=== PATIENT | male | born 1940 | race Caucasian/White ===

== ENCOUNTER 2018-06-24 23:35 | Inpatient (IN) | payer MEDICARE, OTHER ==
[2018-06-25 00:23] LABS: Troponin I 0.291 ng/mL (< 0.028)
[2018-06-25] MEDS ORDERED: Enoxaparin Sodium 80 MG/0.8 ML SYRINGE ONE (01:02)
[2018-06-25] MEDS ORDERED: Ondansetron ODT 4 MG TAB PO PRN (01:20)
[2018-06-25] MEDS ORDERED: Ondansetron PF 4 MG/2 ML Vial IVP PRN (01:20)
[2018-06-25 03:03] LABS: #Basophils 0.1 thou/uL (0.0-0.2); #Eosinphils 0.4 thou/uL (0.0-0.7); #Lymphocytes 2.5 thou/uL (1.20-3.40); #Monocytes 0.7 thou/uL (0.11-0.59); #Neutrophils 4.5 thou/uL (1.40-6.50); %Basophils 0.8 % (0.0-1.0); %Eosinophils 4.9 % (0.0-10.0); %Lymphocytes 30.3 % (21.0-51.0); %Monocytes 8.8 % (0.0-10.0); %Neutrophils 55.1 % (42.0-75.0); Hemoglobin 14.7 g/dL (14.0-18.0); Mean Corpuscular HGB CONC 32.6 g/dL (32.0-36.0); Mean Corpuscular Hemoglobin 31.1 pg (27.0-31.0); Mean Corpuscular Volume 95.3 fL (78.0-98.0); Mean Platelet Volume 6.4 fL (7.4-10.4); Platelet Count 226 thou/uL (130-400); RBC Distribution Width 11.5 % (11.5-14.5); Red Blood Cell (RBC) Count 4.73 mill/uL (4.70-6.10); White Blood Cell (WBC) Count 8.2 thou/uL (4.8-10.8)
[2018-06-25 03:27] LABS: Anion Gap 12 mmol/L (10-20); BUN (Urea Nitrogen) 11 mg/dL (8.4-25.7); Calc. Creatinine Clearance 0 mL/min (70-130); Calcium 9.6 mg/dL (7.8-10.44); Carbon Dioxide 27 mmol/L (23-31); Chloride 106 mmol/L (98-107); Estimated GFR-MDRD 89; Glucose 104 mg/dL (83-110); Sodium 141 mmol/L (136-145)
[2018-06-25 03:33] LABS: Troponin I 0.326 ng/mL (< 0.028)
[2018-06-25 06:42] LABS: Troponin I 0.336 ng/mL (< 0.028)
--- NOTE | 2018-06-25 06:42 | HP ---
PRIMARY CARE DOCTOR: TIME OF EVALUATION: 01:00 a.m. CHIEF COMPLAINT: Chest pain. HISTORY OF PRESENT ILLNESS: This is a 78-year-old male patient with past medical history of hypertension, long-term smoker, came to the hospital after having chest pain, has been on and off for the past week. No clear triggers. No alleviating factors, although the patient reported it is worsened with exertion. The pain radiates to the left arm, symptoms are moderate, associated with shortness of breath. REVIEW OF SYSTEMS: CONSTITUTIONAL: No fever, chills, or generalized weakness. RESPIRATORY: The patient has occasional cough. No sputum production. He reported some shortness of breath. CARDIOVASCULAR: The patient has chest pain as described in HPI. No palpitation. GASTROINTESTINAL: No nausea, vomiting, diarrhea, or abdominal pain. DIRECTOR MEDICAL SCIENCE: No dizziness, headache, or feeling lightheaded. GENITOURINARY: No burning on urination. EXTREMITIES: No leg swelling. All other systems were reviewed and negative except for the findings mentioned above. PAST MEDICAL HISTORY: As mentioned in the HPI. PAST SURGICAL HISTORY: 1. Colon resection. 2. Repair of bowel obstruction with scar tissue. 3. Removal of the blockage in right leg. 4. Surgical history of appendectomy. PSYCH HISTORY: Includes anxiety and depression. FAMILY HISTORY: Reviewed and non contributory to current presentation. SOCIAL HISTORY: The patient drinks socially rarely. The patient denies drug use. He smokes half a pack per day of cigarettes. KNOWN ALLERGIES: To . REPORTED MEDICATIONS: 1. Clonazepam. 2. Propanol. 3. Irbesartan. 4. Combivent. 5. Melatonin. PHYSICAL EXAMINATION: VITAL SIGNS: On presentation, blood pressure 168/93 with heart rate 67, respiratory rate was 20, temperature 98, and pain was 0/10. GENERAL APPEARANCE: The patient is alert, oriented, not in acute distress. HEENT: Eyes, normal conjunctiva. Moist oral mucosa. Anicteric. No JVD. RESPIRATORY: Bilateral air entry. No rales or wheezes. Symmetric expansion. CARDIOVASCULAR: Normal rate and regular rhythm. No murmurs. No gallop. No edema. ABDOMEN: Soft. Normal bowel sounds. MUSCULOSKELETAL: Baseline range of motion and strength. No tenderness. SKIN: Warm and intact. No pallor. No rash. No redness. Peripheral pulses are present. Capillary refill seems to be intact. NEURO: No evidence of any new focal weakness. Baseline speech. Cranial nerve seems to be intact. PSYCH: The patient has good mood. No anxiety. Optimal judgment. DIAGNOSTIC STUDIES: EKG was reviewed. The patient had normal sinus rhythm with a rate of 65, NV 180, QRS 80, and QT corrected 430. I was unable to find a chest x-ray in this patient. We have ordered a chest x-ray. LABORATORY DATA: Labs were reviewed. The patient has a white count 9.2, hemoglobin 14.7, MCV 95, and platelet count 236. Chemistry; sodium 141, potassium 4.0, chloride 106, carbon dioxide 27, anion gap 12, BUN 11, creatinine 0.8, GFR 89, glucose 104, and calcium 9.6. Troponin 0.291, second one is 0.326. ASSESSMENT AND PLAN: The patient has been placed in the hospital for the following medical problems: 1. Non-ST Segment Elevation Myocardial Infarction. The patient has elevated troponin. The patient has been started on Lovenox, irbesartan, propranolol, that was the medication the patient was taken at home. We will start him on atorvastatin and aspirin. Consult cardiology. Most likely patient will go for cardiac cath. Follow recommendations. 2. Uncontrolled hypertension. The patient on presentation, the patient presented with systolic blood pressure of 168 with diastolic 93, the patient was hypertensive, we have reconciled home medications, we will adjust treatment as needed as blood pressures has been in better range. 3. Deep venous thrombosis prophylaxis. 4. Risk assessment, the patient has a high risk of complication due to Non-ST Segment Elevation Myocardial Infarction. Job ID: [id number] [facility]
--- NOTE | 2018-06-25 07:58 | RAD ---
PORTABLE AP CHEST XRAY: DATE: 06/25/2018. HISTORY: Chest pain. COMPARISON: Study obtained from [facility] on 06/24/2018. FINDINGS: The cardiac silhouette and pulmonary vasculature are within normal limits. The lungs remain clear. There has been no interval change from the prior exam. IMPRESSION: No acute cardiopulmonary process. POS: [facility]
[2018-06-25] MEDS ORDERED: Enoxaparin Sodium 40 MG/0.4 ML SYRINGE SC SCH (09:00)
[2018-06-25] MEDS ORDERED: Iopamidol 370 76% 100 ML VIAL ONE (10:18)
[2018-06-25] MEDS ORDERED: Fentanyl 100 MCG/2 ML VIAL ONE (12:28)
[2018-06-25] MEDS ORDERED: Midazolam HCl 2 mg/2 ml Vial ONE (12:28)
[2018-06-25] MEDS ORDERED: Sodium Chloride 0.9% 200 ML IV PRN (12:42)
[2018-06-25] MEDS ORDERED: Nitroglycerin 50 MG/250 ML BOT 250 ML ONE (12:42)
[2018-06-25] MEDS ORDERED: Nitroglycerin 0.4 MG TAB (25 Tab Bottle) SL PRN (12:42)
[2018-06-25] MEDS ORDERED: Sodium Chloride 0.9% 1,000 ML IV SCH (12:45)
[2018-06-25] MEDS ORDERED: Nitroglycerin 50 MG/250 ML BOT 250 ML IVPB SCH (12:45)
--- NOTE | 2018-06-25 12:55 | CON ---
DATE OF CONSULTATION: REASON FOR CONSULTATION: Chest pain and non ST-segment elevation. HISTORY: Mr. Cheng is a very pleasant 78-year-old gentleman, whom I have seen and evaluated in the past. He was previously seen for PVD. 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 This was 4 years ago. He recently presented with chest pain. He has had 4 total episodes lasting no more than 15 minutes. They all occurred at rest. He presented to the emergency room, where his troponin was mildly elevated at 0.2. He is currently pain free. PAST MEDICAL HISTORY: Tobacco use, hypertension, colon resection, and appendectomy. SOCIAL HISTORY: As above including rare alcohol use. HOME MEDICATIONS: Include: 1. Propanol. 2. Irbesartan. 3. Combivent. 4. Melatonin. 5. Clonazepam. REVIEW OF SYSTEMS: A 10-point review of systems is reviewed and as above, otherwise negative. PHYSICAL EXAMINATION: GENERAL: Patient is a pleasant 78-year-old who is in no acute distress. The patient appears their stated age. VITAL SIGNS: Blood pressure 120/70, pulse 80, respiration 20. NEUROLOGIC: The patient is alert and oriented x3 with no focal neurologic deficits. HEENT: Sclerae without icterus. Mouth has moist mucous membranes with normal pallor. NECK: No JVD. Carotid upstroke brisk. No bruits bilaterally. LUNGS: Clear to auscultation with unlabored respirations. BACK: No scoliosis or kyphosis. CARDIAC: Regular rate and rhythm with normal S1 and S2. No S3 or S4 noted. No significant rubs, murmurs, thrills, or gallops noted throughout the precordium. PMI is not displaced. There is no parasternal heave. ABDOMEN: Soft, nontender, nondistended. No peritoneal signs present. No hepatosplenomegaly. No abnormal striae. EXTREMITIES: 2+ femoral and 2+ dorsalis pedis pulses. No cyanosis, clubbing, or edema. SKIN: No gross abnormalities. PERTINENT LABORATORY DATA: Hemoglobin 14.7, peak troponin 0.036, creatinine 0.83, hemoglobin 14.7. EKG normal sinus rhythm with nonspecific ST-T wave changes. IMPRESSION: 1. Non-Q-wave myocardial infarction. 2. Tobacco abuse. 3. Peripheral vascular disease. RECOMMENDATIONS: Mr. Cheng symptoms certainly suggest angina. I would recommend coronary angiography plus PCI given the above. He is high risk for underlying coronary artery disease. I discussed procedure in full detail with Mr. Cheng. The risks of the procedure were also discussed. The risks of the procedure include but are not limited to the following: , stroke, [place], need for emergency surgery, loss of limb, bleeding, and infection, as well as a reaction to the dye causing kidney failure and needing long-term dialysis. I also discussed the risks of PCI to include all of the above including coronary dissection and perforation in addition to acute stent thrombosis and restenosis. All questions about the procedure were answered. Given the above, the patient agreed to proceed with coronary angiography and possible PCI. All questions were answered. I also discussed drug-coated and [id number] stent placement. There were no contraindications to proceed if needed. Further recommendations pending the above. Job ID: [id number]
[2018-06-25 14:36] LABS: Hemoglobin 14.6 g/dL (14.0-18.0); Platelet Count 223 thou/uL (130-400)
[2018-06-25 14:43] LABS: PTT 29.8 SEC (22.9-36.1); Prothrombin Time 13.6 SEC (12.0-14.7)
[2018-06-25] MEDS: Aspirin 325 mg Enteric Coated Tablet PO SCH ×2 (17:03→17:04)
[2018-06-25] MEDS: Propranolol HCl 20 MG TAB PO SCH ×3 (17:40→21:18)
[2018-06-25] MEDS ORDERED: Melatonin 3 MG TAB PO PRN (19:20)
[2018-06-25] MEDS: Atorvastatin Calcium 40 MG TAB PO SCH (21:17)
[2018-06-25] MEDS: clonazePAM 0.5 MG TAB PO PRN (21:23)
[2018-06-25] MEDS: Heparin 10,000 UNITS/ 10 ML VIAL SLOW IVP SCH (22:56)
--- NOTE | 2018-06-25 23:09 | CON ---
DATE OF CONSULTATION: 06/25/2018 REQUESTING PHYSICIAN: Yifan Urias MD PRIMARY CARE PHYSICIAN: Dr. Vimal Welch. CHIEF COMPLAINT: Chest pressure. HISTORY OF PRESENT ILLNESS: This patient is a 78-year-old smoker with peripheral vascular disease and hypertension. For about a year, he has noticed some dyspnea on exertion. He says that he gets short of breath climbing up one flight of stairs. He plays golf using a golf cart and he says that he is typically able to walk from his cart to the ball, make a swing and go back to the cart without getting short of breath. He has not had any other chest symptoms associated with those episodes. He has had something of a cough and he recently had an illness that he assumed to be bronchitis that has since resolved. The last few days, however, he has had episodes of chest pressure and on the night of the , he had one that was bad enough, he decided to go to the emergency room. His first set of enzymes were mildly elevated and over the next 6 hours, they continue to rise a little bit. Cardiac catheterization today shows a right-dominant system with a significant distal left main lesion. PAST MEDICAL HISTORY: Significant for hypertension, peripheral vascular disease having undergone percutaneous right lower extremity revascularization procedure about 4 years ago. He describes about 4 or 5 years ago, undergoing a left-sided colon resection for what proved to be numerous benign polyps that apparently were associated with diarrhea. He has had undergone appendectomy. HOME MEDICATIONS: 1. Propranolol 20 mg p.o. t.i.d. 2. Irbesartan 150 mg a day. 3. Clonazepam 0.5 mg b.i.d. p.r.n. anxiety. 4. Melatonin 1 mg at bedtime. 5. He apparently recently been started on a Combivent inhaler after initially using Symbicort. ALLERGIES: HE REPORTS ALLERGIES TO CODEINE AND BENADRYL, ALTHOUGH IT IS NOT CLEAR WHAT THOSE REACTIONS ARE. CURRENT MEDICATIONS: 1. Inderal 20 mg p.o. t.i.d. 2. Irbesartan 150 mg p.o. q.12 hours. 3. Lipitor 40 mg at bedtime. 4. Adult aspirin a day. 5. P.r.n. clonazepam. 6. IV nitroglycerin. FAMILY HISTORY: Significant for his mother dying in her 40s from cancer, but other maternal relatives living to advanced ages. His maternal grandmother lived over 100. On his father's side, his father and paternal uncles all had heart attacks. SOCIAL HISTORY: He smokes half to one pack of cigarettes a day for about 60 years. He occasionally drinks alcohol. REVIEW OF SYSTEMS: He denies any eye, speech, facial, or extremity symptoms to suggest TIAs. The claudication he had in his right lower extremity has resolved since his percutaneous procedure a few years ago. He has dyspnea on exertion as described above. He has not had any shortness of breath associated with his chest pressure. He has no orthopnea or PND. No pedal edema. He has not had any recent diarrhea. He had weight loss associated with his diarrhea and his bowel resection, but none recently. PHYSICAL EXAMINATION: VITAL SIGNS: His heart rate is 76, blood pressure 163/82. On presentation to the emergency room, his heart rate was 67 and blood pressure 168/93. He is 5 feet 11 inches, weighs 159 pounds. HEENT: He has no xanthelasma. NECK: No JVD. No carotid bruits. CHEST: He has clear, but distant breath sounds. He had decreased force of exhalation when I asked him to blow out hard against my hand. HEART: He has a regular rate and rhythm without obvious murmur or gallop. ABDOMEN: Soft, nontender without masses or bruits. He has well-healed surgical scar in the low vertical midline. He has easily palpable radial and femoral pulses bilaterally. Both femoral pulses are associated with bruits. He has a palpable, but somewhat diminished right dorsalis pedis pulse. I was not able to appreciate the left dorsalis pedis. His left posterior tibial is palpable and not able to appreciate the right posterior tibial. No clubbing, cyanosis, or edema. He does have visible saphenous vein at the ankles, which appears to be of good quality. NEUROLOGIC: Grossly nonfocal. DIAGNOSTIC DATA: His chest x-ray shows prominent vascular markings, relatively small elongated heart and ectatic aorta with diaphragms somewhat suggestive of flattening, all consistent with COPD. LABORATORY DATA: Laboratory exam showed a white count of 8.2, hemoglobin 14.7, hematocrit 45.1, platelets 226,000. Electrolytes were normal. Glucose 89, BUN 11, creatinine 0.83, calcium 9.6. His troponin at night of the was 0.291, at about 3 o'clock on the morning of the 15th was 0.326, and at 6 o'clock was 0.336. His EKG had nonspecific ST changes. His cardiac catheterization shows a right-dominant system with extensive calcifications throughout the right coronary into the origin of the branch vessels, as well as the proximal portions of the left main in the LAD and circumflex systems. He has diffuse luminal irregularity in the right coronary proper, significant lesion at the origin of a modest size posterolateral branch that then becomes tiny, and a high-grade lesion at the origin of reasonably large PDA. He has at least 60% or 70% lesion in his distal left main and multiple views have a hazy appearance suggesting that it is probably tighter than that. His LAD is a small vessel about 1 to 1.5 mm for much of its length and then becomes very tiny distally, not even going out to the apex. There is a relatively high diagonal with significant lesion in it. There is a relatively small ramus type vessel and a high-grade lesion in a bifurcated OM1 that is also relatively small vessel. The circumflex continues on in the groove, but does not have any significant vessels coming out onto the epicardial surface from that. Ventriculography was deferred. Echocardiography is reported as EF of 50% to 60% with findings consistent with diastolic dysfunction with mild mitral regurgitation with normal left atrial size. IMPRESSION AND PLAN: Severe left main disease. There is potential for an incomplete revascularization because of the very small size of the LAD distally and extensive calcification more proximally. However, given the extensive nature of his disease including distal left main disease, even incomplete revascularization probably will give him a much better long-term prognosis than relegating him to medical management and what I would imagine to be very high risk percutaneous revascularization. Job ID: [id number]
[2018-06-26 05:10] LABS: #Basophils 0.1 thou/uL (0.0-0.2); #Eosinphils 0.4 thou/uL (0.0-0.7); #Lymphocytes 2.4 thou/uL (1.20-3.40); #Monocytes 0.6 thou/uL (0.11-0.59); #Neutrophils 3.9 thou/uL (1.40-6.50); %Basophils 1.5 % (0.0-1.0); %Eosinophils 4.9 % (0.0-10.0); %Lymphocytes 32.5 % (21.0-51.0); %Monocytes 8.5 % (0.0-10.0); %Neutrophils 52.6 % (42.0-75.0); Hemoglobin 14.1 g/dL (14.0-18.0); Mean Corpuscular HGB CONC 32.1 g/dL (32.0-36.0); Mean Corpuscular Hemoglobin 30.8 pg (27.0-31.0); Mean Corpuscular Volume 96.1 fL (78.0-98.0); Mean Platelet Volume 6.4 fL (7.4-10.4); Platelet Count 217 thou/uL (130-400); RBC Distribution Width 11.4 % (11.5-14.5); Red Blood Cell (RBC) Count 4.59 mill/uL (4.70-6.10); White Blood Cell (WBC) Count 7.5 thou/uL (4.8-10.8)
[2018-06-26 05:26] LABS: Anion Gap 11 mmol/L (10-20); BUN (Urea Nitrogen) 9 mg/dL (8.4-25.7); Calc. Creatinine Clearance 31 mL/min (70-130); Calcium 9.1 mg/dL (7.8-10.44); Carbon Dioxide 27 mmol/L (23-31); Chloride 106 mmol/L (98-107); Estimated GFR-MDRD Greater than 90; Glucose 89 mg/dL (83-110); Potassium 4.1 mmol/L (3.5-5.1); Sodium 140 mmol/L (136-145)
[2018-06-26] MEDS: Propranolol HCl 20 MG TAB PO SCH ×3 (09:55→21:21)
[2018-06-26] MEDS: Aspirin 325 mg Enteric Coated Tablet PO SCH (09:56)
--- NOTE | 2018-06-26 09:56 | PDOC.CTH ---
Cardiology Progress Note - Subjective Pt. seen and eval. No overnight events. No cardiac complaints this AM. - Objective Vital Signs Temp 06/26/18 04:00 97.7 F 06/26/18 00:00 97.6 F Admit Weight 67 lb 3.2 oz Weight 152 lb 1.903 oz 06/25/18 06/26/18 06/27/18 06:59 06:59 06:59 Intake Total 1540.4 Output Total 1125 Balance 415.4 - Physical Examination General/Neuro: alert & oriented x3 Neck: carotid US brisk, no JVD present Lungs: CTA Heart: RRR Abdomen: NT/ND, soft - Labs Result Diagrams: 06/26/18 04:42 06/26/18 04:42 Troponin/CKMB Troponin I 0.336 ng/mL (< 0.028) H* 06/25/18 05:58 - Assessment/Plan 1. CAD. NSTEMI. Left main stenosis. Plan for CABG on Thursday unless pt. becomes unstable. 2. HTN. stable. 3. Anxiety. pt. calm thus far. Meds reviewed.
[2018-06-26] MEDS: Heparin 10,000 UNITS/ 10 ML VIAL SLOW IVP SCH (11:32)
[2018-06-26] MEDS ORDERED: Communication Order-Pharmacy FS ONE (12:11)
[2018-06-26] MEDS ORDERED: Losartan 25 MG TAB PO SCH (12:15)
[2018-06-26] MEDS: ALPRAZolam 0.25 MG TAB PO PRN (14:57)
[2018-06-26] MEDS: Heparin 25,000 units/D5W 500 ML IVPB SCH (15:24)
--- NOTE | 2018-06-26 18:01 | CON ---
DATE OF CONSULTATION: HISTORY OF PRESENT ILLNESS: Faizan Cheng is a very pleasant gentleman, who has undergone cardiac catheterization. It is felt that he will probably need coronary artery bypass grafting. This is tentatively scheduled for Thursday. He is in the Critical Care Unit for observation until surgery. PAST MEDICAL HISTORY: Remarkable for: 1. Hypertension. 2. Peripheral vascular disease. 3. History of right lower extremity revascularization procedure in the past. 4. History of left hemicolectomy for polyps. 5. History of an appendectomy. 6. History of tobacco use up until this admission. 7. Unstable angina leading up to this admission and his heart catheterization. SOCIAL HISTORY: He is a nondrinker, nondrug user. MEDICATIONS: Prior to admission, he is on propranolol, irbesartan, Combivent, melatonin, clonazepam. His Combivent has just been started. He also had prescription for Dulera that his nurse practitioner I believe had started. REVIEW OF SYSTEMS: Otherwise negative. He denies shortness of breath or chest discomfort at this time. PHYSICAL EXAMINATION: GENERAL: Pleasant gentleman, in no distress. VITAL SIGNS: He is afebrile. Blood pressure 114/72, heart rate is 60, respiratory rate is 18. HEENT: Pupils are equal. Sclerae are anicteric. NECK: Supple. LUNGS: Clear. HEART: Regular rhythm. S1 and S2 are normal. I do not hear murmur. ABDOMEN: Soft and nontender without masses or organomegaly. EXTREMITIES: Without clubbing, cyanosis or edema. LABORATORY DATA: White count 7.5, hemoglobin 14.1, platelets 217. Electrolytes are normal. Creatinine is 0.8. IMPRESSION AND PLAN: 1. Coronary artery disease, tentatively scheduled for coronary artery bypass grafting. 2. History of tobacco. He said 6 months ago, he could easily walk a block if he had to but his knees sometimes limit his ability to walk. He does not ever describe dyspnea at rest. 3. It is unclear whether or not he truly has COPD. I would be happy to follow the other physicians caring for him. Hopefully, he will be able to remain abstinent from tobacco after he gets out of here. 70 minute consult with 50 % of time spent on unit coordinating care Job ID: [id number] [facility]
--- NOTE | 2018-06-26 18:38 | PDOC.PN ---
- Subjective Encounter Start Date: 06/26/18 Encounter Start Time: 15:35 Subjective: No new problem -: Denied chest pain. - Objective Resuscitation Status - Order Detail: 06/25/18 01:20 Resuscitation Status Routine Resuscitation Status: FULL: Full Resuscitation Vital Signs & Weight: Vital Signs (12 hours) Temp Pulse Ox 06/26/18 16:00 97.9 F 06/26/18 12:00 98.0 F 06/26/18 08:00 98 06/26/18 07:00 97.6 F Weight Admit Weight 67 lb 3.2 oz Weight 152 lb 1.903 oz Most Recent Monitor Data Heart Rate from ECG 64 NIBP 124/66 NIBP BP-Mean 85 Respiration from ECG 14 SpO2 98 I&O: 06/25/18 06/26/18 06/27/18 06:59 06:59 06:59 Intake Total 1540.4 1471 Output Total 1125 1025 Balance 415.4 446 Result Diagrams: 06/26/18 04:42 06/26/18 04:42 Phys Exam - Physical Examination HEENT: PERRLA Neck: no JVD, supple, full ROM fair air entry bilaterally. Cardiovascular: RRR, no rub Gastrointestinal: soft, non-tender, no distention, positive bowel sounds Musculoskeletal: no edema Neurological: non-focal, moves all 4 limbs Dx/Plan (1) Non-ST elevation NE (NSTEMI) Code(s): I21.4 - NON-ST ELEVATION (NSTEMI) MYOCARDIAL INFARCTION Status: Acute Comment: S/p cardiac cath. Found to have left main disease. For CABG on thursday. (2) COPD (chronic obstructive pulmonary disease) Status: Acute (3) Tobacco abuse disorder Code(s): Z72.0 - TOBACCO USE Status: Acute (4) PVD (peripheral vascular disease) Code(s): I73.9 - PERIPHERAL VASCULAR DISEASE, UNSPECIFIED Status: Acute - Plan Continue antithrombotic and anti angina medications( heparin and Nitro infu -: Duonebs as needed -: For CABG on thursday. * .
[2018-06-26] MEDS: Atorvastatin Calcium 40 MG TAB PO SCH (21:09)
[2018-06-26] MEDS: Losartan 25 MG TAB PO SCH (21:21)
--- NOTE | 2018-06-27 08:38 | PRG ---
DATE OF SERVICE: 06/27/2018 SUBJECTIVE: The patient is seen and examined at bedside. He is resting comfortably. He does not have much complaints to offer, except for a lack of bowel movement for the last several days. He does not have any chest pain. No shortness of breath. OBJECTIVE: VITAL SIGNS: Blood pressure is 120/74, pulse is 63, respirations are 15, O2 saturation is 97%. HEENT: His head is atraumatic and normocephalic. Eyes are PERRLA. Sclerae are nonicteric. Oral mucosa is moist. NECK: Supple. No lymphadenopathy. Thyroid is not palpable. LUNGS: Clear. HEART: S1, S2 normal. No S3. No S4. No any murmur. ABDOMEN: Soft, nontender, nondistended. Bowel sounds are present. No organomegaly. EXTREMITIES: No clubbing, cyanosis, or edema. He has diminished pulses on both tibialis posterior and dorsalis pedis arteries similar bilaterally. NEUROLOGICAL: He is alert and oriented x4. There is no any motor or sensory deficits. Cranial nerves are intact. LABORATORY DATA: Showed APTT ranging from 63.7 to 99.3. IMPRESSION: 1. Nof-[id number] myocardial infarction, status post cardiac catheterization, apparently it showed left main disease. The patient is scheduled for CABG on Thursday. 2. Questionable chronic obstructive pulmonary disease. 3. Chronic tobacco abuser. 4. Peripheral vascular disease. 5. Constipation. PLAN: We will try to get him up today, let him go to the bathroom. He should be able to move his bowels without any help. If needed, we will use some medications to move his bowels before his surgery. We will continue his heparin drip, and we will continue Cody's p.r.n. Job ID: [id number]
[2018-06-27] MEDS: Aspirin 325 mg Enteric Coated Tablet PO SCH (09:26)
[2018-06-27] MEDS: Propranolol HCl 20 MG TAB PO SCH ×3 (09:26→19:45)
[2018-06-27] MEDS: Losartan 25 MG TAB PO SCH ×2 (09:26→19:44)
[2018-06-27] MEDS: ALPRAZolam 0.25 MG TAB PO PRN ×2 (09:48→19:00)
[2018-06-27 12:59] LABS: Platelet Count 216 thou/uL (130-400)
[2018-06-27] MEDS: Heparin 25,000 units/D5W 500 ML IVPB SCH (15:09)
--- NOTE | 2018-06-27 19:15 | PRG ---
DATE OF SERVICE: 06/27/2018 SUBJECTIVE: Faizan Cheng did well overnight. He has had no chest pain. He denies being short of breath. OBJECTIVE: VITAL SIGNS: He is afebrile. Heart rate in the 50s to 60s, blood pressure 145/84, and respiratory rate 20. LUNGS: Clear. HEART: Regular rhythm. ABDOMEN: Soft. EXTREMITIES: Without edema. LABORATORY DATA: Hemoglobin stable at 15 g. Electrolytes are completely normal yesterday, none were ordered today. IMPRESSION: Coronary artery disease necessitating bypass surgery hopefully tomorrow. I would not anticipate significant pulmonary problems with weaning. Hopefully, he will wean per protocol. I will continue to follow. Job ID: [id number]
[2018-06-27] MEDS: Atorvastatin Calcium 40 MG TAB PO SCH (19:44)
[2018-06-27] MEDS: Docusate 100 MG CAP PO SCH (19:45)
[2018-06-28] MEDS: clonazePAM 0.5 MG TAB PO PRN (00:52)
[2018-06-28] MEDS: Propranolol HCl 20 MG TAB PO SCH (06:01)
[2018-06-28] MEDS ORDERED: Albumin 5% 0 ML ONE (06:37)
[2018-06-28] MEDS ORDERED: Heparin 10,000 UNITS/1 ML VIAL 30,000 UNITS in Sodium Chloride 0.9% 1,000 ML FS SCH (06:45)
[2018-06-28] MEDS ORDERED: Fentanyl 250 MCG/5 ML VIAL ONE (07:24)
[2018-06-28] MEDS ORDERED: Midazolam HCl 5 mg/5 ml Vial ONE (07:24)
[2018-06-28] MEDS ORDERED: Morphine 2 MG/ML SYRINGE SLOW IVP PRN (08:17)
[2018-06-28] MEDS ORDERED: Fentanyl 100 MCG/2 ML VIAL SLOW IVP PRN (08:17)
[2018-06-28] MEDS ORDERED: Potassium Chloride 20 MEQ/100 ML PREMIX BAG IVPB PRN (08:17)
[2018-06-28] MEDS ORDERED: Mag-Al 1200 mg/1200 mg/30 ML UDCUP PO PRN (08:17)
[2018-06-28] MEDS ORDERED: Promethazine HCl 25 MG/ML VIAL IM PRN (08:17)
[2018-06-28] MEDS ORDERED: Acetaminophen 325 MG TAB PO PRN (08:17)
[2018-06-28] MEDS ORDERED: Nitroglycerin 50 MG/250 ML BOT 250 ML IVPB PRN (08:17)
[2018-06-28] MEDS ORDERED: Bisacodyl 5 MG TAB PO PRN (08:17)
[2018-06-28] MEDS ORDERED: Ondansetron PF 4 MG/2 ML Vial IVP PRN (08:17)
[2018-06-28] MEDS ORDERED: Bisacodyl 10 MG SUPP PR PRN (08:17)
[2018-06-28] MEDS ORDERED: Post-Op Insulin Drip Protocol IVPB ONE (08:17)
[2018-06-28] MEDS ORDERED: hydrALAZINE 20 MG/ML VIAL SLOW IVP PRN (08:17)
[2018-06-28] MEDS ORDERED: Hetastarch 6% 500 ML 500 ML IVPB PRN (08:17)
[2018-06-28] MEDS ORDERED: Guaifenesin DM 100-10/5 ML UDCUP PO PRN (08:17)
[2018-06-28] MEDS ORDERED: PHENYLEPHRINE-NS 100 MCG/ML 10 ML SYRINGE ONE ×2 (08:38→15:08)
[2018-06-28] MEDS ORDERED: CEFAZOLIN 1 GM VIAL ONE (08:38)
[2018-06-28] MEDS ORDERED: Insulin Regular 300 UNITS/3 ML VIAL SC PRN (09:34)
[2018-06-28] MEDS ORDERED: HUMULIN R 100 UNITS in Sodium Chloride 0.9% 100 ML IVPB SCH (09:34)
[2018-06-28] MEDS ORDERED: Dextrose 50% Abboject 50 ML SYRINGE SLOW IVP PRN (09:34)
[2018-06-28] MEDS ORDERED: Dextrose 5% in Water 1,000 ML IV PRN (09:34)
[2018-06-28 10:15] LABS: Actual Bicarbonate (HCO3a) 24.8 mEq/L (22-28); Base Excess (BEa) 1.7 mEq/L (-2.0 to +3.0); CO2 Tension 32.8 mmHg (35.0-45.0); Calcium, Ionized 0.92 mmol/L (1.12-1.30); Hemoglobin (Hb) 8.6 g/dL (14.0-18.0); O2 Tension (PaO2) 486.5 mmHg (> 70.0); Potassium - ABG Lab 4.82 mmol/L (3.70-5.30)
[2018-06-28 10:39] LABS: Actual Bicarbonate (HCO3a) 24.7 mEq/L (22-28); CO2 Tension 35.9 mmHg (35.0-45.0); Calcium, Ionized 1.01 mmol/L (1.12-1.30); Carboxyhemoglobin (COHb) 0.7 gm% (0.0-3.0); Hemoglobin (Hb) 9.1 g/dL (14.0-18.0); O2 Tension (PaO2) 472.3 mmHg (> 70.0); Potassium - ABG Lab 4.75 mmol/L (3.70-5.30); pH, Arterial 7.46 (7.35-7.45)
[2018-06-28] MEDS ORDERED: Dexamethasone 4 mg/ml Vial ONE (10:43)
[2018-06-28] MEDS ORDERED: Bupivacaine HCl 0.5%/Epinephrine 1:200,000/PF 30 ml Vial ONE (10:43)
[2018-06-28 11:11] LABS: Actual Bicarbonate (HCO3a) 23.3 mEq/L (22-28); Base Excess (BEa) -1.8 mEq/L (-2.0 to +3.0); CO2 Tension 41.3 mmHg (35.0-45.0); Calcium, Ionized 2.03 mmol/L (1.12-1.30); Carboxyhemoglobin (COHb) 0.5 gm% (0.0-3.0); Hemoglobin (Hb) 10.6 g/dL (14.0-18.0); O2 Tension (PaO2) 488.7 mmHg (> 70.0); Potassium - ABG Lab 5.03 mmol/L (3.70-5.30); pH, Arterial 7.37 (7.35-7.45)
[2018-06-28 12:48] LABS: Actual Bicarbonate (HCO3a) 21.3 mEq/L (22-28); Base Excess (BEa) -4.2 mEq/L (-2.0 to +3.0); CO2 Tension 40.5 mmHg (35.0-45.0); Calcium, Ionized 1.27 mmol/L (1.12-1.30); Carboxyhemoglobin (COHb) 0.7 gm% (0.0-3.0); Hemoglobin (Hb) 12.6 g/dL (14.0-18.0); O2 Tension (PaO2) 268.8 mmHg (> 70.0); Potassium - ABG Lab 4.28 mmol/L (3.70-5.30); pH, Arterial 7.34 (7.35-7.45)
[2018-06-28 12:50] LABS: Puncture Site ART LINE
[2018-06-28 12:51] LABS: ALV-art Gradient 37.075 (0-20)
[2018-06-28 12:58] LABS: #Eosinphils 0.2 thou/uL (0.0-0.7); #Neutrophils 16.4 thou/uL (1.40-6.50); %Basophils 0.2 % (0.0-1.0); %Eosinophils 1.2 % (0.0-10.0); %Lymphocytes 10.2 % (21.0-51.0); %Neutrophils 83.3 % (42.0-75.0); Hemoglobin 12.1 g/dL (14.0-18.0); Mean Corpuscular Hemoglobin 31.9 pg (27.0-31.0); Mean Corpuscular Volume 96.6 fL (78.0-98.0); Mean Platelet Volume 6.5 fL (7.4-10.4); Platelet Count 156 thou/uL (130-400); RBC Distribution Width 11.5 % (11.5-14.5); Red Blood Cell (RBC) Count 3.81 mill/uL (4.70-6.10); White Blood Cell (WBC) Count 19.7 thou/uL (4.8-10.8)
[2018-06-28 13:03] LABS: INR-International Normal Ratio 1.4; PTT 28.1 SEC (22.9-36.1); Prothrombin Time 17.6 SEC (12.0-14.7)
[2018-06-28 13:12] LABS: Anion Gap 13 mmol/L (10-20); BUN (Urea Nitrogen) 11 mg/dL (8.4-25.7); Calc. Creatinine Clearance 74 mL/min (70-130); Carbon Dioxide 20 mmol/L (23-31); Chloride 110 mmol/L (98-107); Estimated GFR-MDRD Greater than 90; Glucose 168 mg/dL (83-110); Potassium 4.3 mmol/L (3.5-5.1); Sodium 139 mmol/L (136-145)
[2018-06-28] MEDS: Norepinephrine 8 MG/0.9% NS 250 ML IVPB PRN (13:39)
[2018-06-28] MEDS: Sodium Chloride 0.9% 1,000 ML IV SCH ×2 (13:40→21:44)
[2018-06-28] MEDS: Docusate 100 MG CAP PO SCH ×2 (13:41→20:03)
[2018-06-28] MEDS: Famotidine/PF 20 mg/2ml Vial SLOW IVP SCH (13:41)
[2018-06-28] MEDS: Aspirin 325 MG TAB PO SCH (13:41)
--- NOTE | 2018-06-28 14:58 | RAD ---
CHEST 1 VIEW: Date: 06/28/18 HISTORY: Post open heart surgery. COMPARISON: Radiograph dated 06/25/18. FINDINGS: Patient intubated with endotracheal tube tip at the level of the clavicles. Lungs are mildly hyperinf lated. Mediastinal drains are present. New multiple midline sternotomy wires. No large pneumothorax. IMPRESSION: Expected postoperative findings. POS: [facility]
[2018-06-28] MEDS ORDERED: Protamine Sulfate 250 MG/25 ML VIAL ONE (15:08)
[2018-06-28] MEDS ORDERED: Heparin 30,000 units/30 ml VIAL ONE (15:08)
[2018-06-28] MEDS ORDERED: Cardioplegic Soln 1,000 ML BAG ONE (15:08)
[2018-06-28] MEDS ORDERED: Sodium Bicarb 50 MEQ/50 ML VIAL ONE (15:08)
[2018-06-28] MEDS ORDERED: Thrombin 5000 UNITS/5 ML VIAL ONE (15:08)
[2018-06-28] MEDS ORDERED: Aminocaproic Acid 5 GM/20 ML VIAL ONE (15:08)
[2018-06-28] MEDS ORDERED: Mannitol 12.5 GM/50 ML ONE (15:08)
[2018-06-28] MEDS ORDERED: Heparin 5,000 UNITS/ML VIAL ONE (15:08)
[2018-06-28] MEDS ORDERED: Nitroglycerin 50 MG/250 ML BOT ONE (15:08)
[2018-06-28] MEDS ORDERED: Lidocaine 2% PF 100 mg/5 ml Syringe ONE (15:08)
[2018-06-28] MEDS ORDERED: Papaverine 60 MG/2 ML VIAL ONE (15:08)
[2018-06-28] MEDS ORDERED: Magnesium 5 GM/10 ML VIAL ONE (15:08)
[2018-06-28] MEDS ORDERED: DOPamine 400 MG/10 ML VIAL ONE (15:08)
[2018-06-28] MEDS ORDERED: Rocuronium Bromide 10 MG/ML (10ML VIAL) ONE (15:08)
[2018-06-28] MEDS ORDERED: Calcium Chloride 1 GM/10 ML Abboject SYRINGE ONE (15:08)
[2018-06-28] MEDS ORDERED: PROPOFOL 200 MG/20 ML VIAL ONE (15:08)
[2018-06-28] MEDS ORDERED: Potassium Chloride 60 MEQ/30 ML VIAL ONE (15:08)
[2018-06-28] MEDS ORDERED: Albumin 25% 25 GM/100 ML BOT ONE (15:08)
[2018-06-28] MEDS ORDERED: Vecuronium 10 MG VIAL ONE (15:08)
[2018-06-28 16:05] LABS: Actual Bicarbonate (HCO3a) 22.6 mEq/L (22-28); Base Excess (BEa) -3.1 mEq/L (-2.0 to +3.0); CO2 Tension 43.3 mmHg (35.0-45.0); Calcium, Ionized 1.19 mmol/L (1.12-1.30); Carboxyhemoglobin (COHb) 0.8 gm% (0.0-3.0); Hemoglobin (Hb) 12.6 g/dL (14.0-18.0); O2 Tension (PaO2) 127.3 mmHg (> 70.0); Potassium - ABG Lab 3.82 mmol/L (3.70-5.30); pH, Arterial 7.34 (7.35-7.45)
[2018-06-28 16:16] LABS: ALV-art Gradient 103.775 (0-20)
[2018-06-28] MEDS: Fentanyl 100 MCG/2 ML VIAL SLOW IVP PRN ×3 (16:21→21:14)
--- NOTE | 2018-06-28 17:27 | PRG ---
DATE OF SERVICE: 06/28/2018 SUBJECTIVE: The patient is intubated, still sedated from surgery. OBJECTIVE: VITAL SIGNS: Pulse 81, BP is 104/65, respirations 17, and O2 saturation 92% on the vent. GENERAL APPEARANCE: The patient was sedated, intubated, in no distress, comfortable. HEART: Regular rate and rhythm without murmurs, gallops, or rubs. LUNGS: Clear to auscultation bilaterally. Good chest wall expansion and air exchange. ABDOMEN: Soft, nontender, and nondistended. Positive bowel sounds. No masses. No organomegaly. EXTREMITIES: Warm and dry. IMPRESSION AND PLAN: 1. Significant coronary artery disease, status post coronary artery bypass graft. The patient will be extubated once he is awake from the anesthesia. Followed by [facility]. 2. Rju-MD-kynkkjf myocardial infarction. 3. History of possible chronic obstructive pulmonary disease, appears to be stable. Looks like, he will be very extubatable. 4. History of tobacco abuse. 5. History of peripheral vascular disease, stable. Job ID: [id number]
--- NOTE | 2018-06-28 17:41 | OP ---
DATE OF PROCEDURE: 06/28/2018 PROCEDURES PERFORMED: Coronary artery bypass grafting x4 with left internal mammary artery to the mid left anterior descending artery and reverse greater saphenous vein graft from the aorta to the distal posterior descending artery, to the diagonal, and to the ramus intermedius. PREOPERATIVE DIAGNOSIS: Left main coronary artery disease. POSTOPERATIVE DIAGNOSIS: Left main coronary artery disease. SYSTEMS SOFTWARE ENGINEER: Thiago. ANESTHESIA: General endotracheal anesthesia. INDICATIONS: The patient is a 78-year-old smoker with about a year's history of dyspnea on exertion, who in the days leading up to presentation, began having chest pressure on a daily basis, typically at rest. He had nonspecific EKG changes and mildly elevated troponin consistent with a [id number] myocardial infarction. Cardiac catheterization demonstrated a high-grade distal left main lesion in a right-dominant system and echocardiography suggested preserved left ventricular function. He is now taken to the operating room for surgical revascularization. FINDINGS: Pump time 95 minutes. Cross-clamp time 49 minutes. GILMA was somewhat small and thin walled, but had excellent flow. The saphenous vein was somewhat small and thin walled. The mid LAD was about a 1.5-mm slightly sclerotic vessel. The diagonal was diffusely diseased in its proximal and mid portions, were grafted distally, it was about 1 to 1.5 mm in fairly good quality. The ramus had extensive disease, and approximately, it was about a 2-mm intramyocardial vessel that was fairly in good quality, was grafted. The posterolateral branches of the circumflex proper were tiny and were not grafted. The posterolateral branches of the right were small and not grafted. The entire right coronary proper and PDA were diffusely diseased with rock hard plaque in the PDA almost all the way out towards the apex. The PDA was grafted where it began to dive deep to the great vein where it was about a 1-mm vessel. The pericardium was closed. DESCRIPTION OF PROCEDURE: After informed consent was obtained, the patient was taken to the operating room, placed in supine position on the operating table. After the induction of general anesthesia, ultrasonographic mapping of the patient's left greater saphenous vein was undertaken, and then, a left subclavian central line was placed under sterile conditions by the Seldinger technique. All 3 ports aspirated and flushed easily. The line was secured, and the patient's torso, groins, and lower extremities were then prepped and draped in sterile fashion. Saphenous vein was exposed just above the left knee and was mobilized endoscopically from the groin to the mid calf. There was some difficulty in completing the harvest distally, and a skin bridge technique was used to complete the mobilization and harvest of the vein. The more proximal incisions were closed in layers of subcutaneous and subcuticular Vicryl. The most distal incision was closed with nylon skin suture. A median sternotomy was performed, and the left internal mammary artery was mobilized as a skeletonized in-situ graft through an extrapleural exposure. The patient was heparinized. The mammary was ligated and divided distally. There was excellent flow through the mammary. Papaverine solution was instilled intraluminally, and the mammary bed inspected for hemostasis. The GILMA retractor was placed with a Haq retractor. The hilar reflections of the left pleura were mobilized. The pericardium was opened and marsupialized. The aorta was palpated and was soft. The double concentric pursestring of 2-0 Ethibond was placed in the ascending aorta just within the pericardial reflection, and a single pursestring was placed in the right atrial appendage. Aortic and venous cannulae were inserted and secured by their pursestrings. The plane between the aorta and the pulmonary artery was developed. Cardiopulmonary bypass was instituted, and the patient was systemically cooled. The heart was examined, and the vessel to be bypassed was identified. A longitudinal slit was made in the pericardium anterior to the left phrenic nerve through which the mammary could be passed. An aortic cross-clamp was applied, and cardioplegia was administered through an aortic root needle. When arrest have been achieved, attention was turned to the PDA, was exposed and opened distally as it was too thoroughly involved with quite hard plaque up to that point. Saphenous vein was anastomosed there end-to-side with running Prolene, and the anastomosis tested by flushing cold cardioplegia down the graft. Attention was then turned to the ramus intermedius, where it first drove intramyocardially into the medial branch of the diagonal distally. Both were grafted in the side in a similar fashion. The LAD was then opened at its mid portion. It was reasonably soft vessel at that point and readily accessible. The mammary was anastomosed there with running 7-0 Prolene. The aortic cross-clamp was replaced with a partial occluding clamp, and aortotomy was made in the ascending aorta with a scalpel and punch, incorporating the root needle site for the most proximal aortotomy. The PDA graft was brought along the right side of the heart and anastomosed to that most proximal aortotomy. The diagonal and ramus grafts were brought along the left side of the heart and anastomosed to the middle and distal aortotomies respectively. All three proximal anastomoses were marked with small hemoclips. Partial occluding clamp was removed, and the vein grafts were de-aired. Bulldogs were removed from them. The anastomoses were inspected for hemostasis. A posterior pericardial drain was brought out through a separate incision and secured with suture. Right atrial and right ventricular temporary epicardial pacing wires were placed. The patient was then from cardiopulmonary bypass with the use of pacing and a dopamine drip. The aortic and venous cannulae were removed, and the pursestring secured. Protamine was administered. When hemostasis was adequate, an anterior mediastinal drain was placed, and the pericardium was easily closed over with running Vicryl. The cut surfaces of the sternum were treated with vancomycin paste and platelet-rich GPS. The sternum was reapproximated with #7 stainless steel wires. The fascia was closed over the wires with running #1 Vicryl after having first irrigated the soft tissues and treated it with platelet-poor GPS. The subcutaneous tissue was reapproximated with running 2-0 Vicryl. The skin was closed with a running 3-0 Vicryl subcuticular suture. The wounds were dressed, and the patient was taken to the intensive care unit in stable condition. Job ID: [id number]
--- NOTE | 2018-06-28 17:53 | PRG ---
DATE OF SERVICE: 06/28/2018 SUBJECTIVE: Mr. Cheng is doing well postoperatively. He underwent successful CABG surgery x4 today. OBJECTIVE: VITAL SIGNS: Blood pressure is 90/70, pulse 70s and sinus. LUNGS: Clear. CARDIAC: Normal S1. Normal S2. ABDOMEN: Soft and nontender. EXTREMITIES: No edema. ASSESSMENT AND PLAN: The patient underwent successful coronary artery bypass grafting. Continue current supportive care. Dr. Urias will return tomorrow. Job ID: [id number] MTDD
[2018-06-28 19:03] LABS: Hemoglobin 11.9 g/dL (14.0-18.0)
[2018-06-28 19:17] LABS: Potassium 4.5 mmol/L (3.5-5.1)
[2018-06-28] MEDS: HYDROmorphone 2 MG TAB PO PRN ×2 (20:05→23:45)
[2018-06-29] MEDS: Sodium Chloride 0.9% 1,000 ML IV SCH ×2 (00:39→11:09)
[2018-06-29 03:25] LABS: #Lymphocytes 1.2 thou/uL (1.20-3.40); #Monocytes 1.9 thou/uL (0.11-0.59); #Neutrophils 15.9 thou/uL (1.40-6.50); %Basophils 0.1 % (0.0-1.0); %Lymphocytes 6.5 % (21.0-51.0); %Monocytes 9.8 % (0.0-10.0); %Neutrophils 83.6 % (42.0-75.0); Hemoglobin 10.9 g/dL (14.0-18.0); Mean Corpuscular HGB CONC 32.6 g/dL (32.0-36.0); Mean Corpuscular Hemoglobin 31.8 pg (27.0-31.0); Mean Corpuscular Volume 97.7 fL (78.0-98.0); Mean Platelet Volume 6.8 fL (7.4-10.4); Platelet Count 151 thou/uL (130-400); RBC Distribution Width 11.5 % (11.5-14.5); Red Blood Cell (RBC) Count 3.43 mill/uL (4.70-6.10)
[2018-06-29 03:44] LABS: Anion Gap 13 mmol/L (10-20); BUN (Urea Nitrogen) 15 mg/dL (8.4-25.7); Calc. Creatinine Clearance 71 mL/min (70-130); Calcium 8.6 mg/dL (7.8-10.44); Carbon Dioxide 21 mmol/L (23-31); Chloride 110 mmol/L (98-107); Estimated GFR-MDRD 89; Glucose 116 mg/dL (83-110); Potassium 4.4 mmol/L (3.5-5.1); Sodium 140 mmol/L (136-145)
[2018-06-29] MEDS: HYDROmorphone 2 MG TAB PO PRN ×3 (04:02→13:07)
[2018-06-29] MEDS: Norepinephrine 8 MG/0.9% NS 250 ML IVPB PRN (06:52)
--- NOTE | 2018-06-29 07:46 | EKG ---
Test Reason : POST CABG Blood Pressure : / mmHG Vent. Rate : 089 BPM Atrial Rate : 089 BPM P-R Int : 160 ms QRS Dur : 074 ms QT Int : 376 ms P-R-T Axes : 077 074 079 degrees QTc Int : 457 ms Normal sinus rhythm Nonspecific ST abnormality Abnormal ECG When compared with ECG of 24-JUN-2018 23:43, (Unconfirmed) Fusion complexes are no longer Present Confirmed by LOBITO ELDRIDGE ([id number]) on 06/29/2018 7:45:58 AM Referred By: AYESHA Confirmed By:LOBITO ELDRIDGE
[2018-06-29] MEDS ORDERED: Ketorolac Tromethamine 15 MG/ML VIAL IVP SCH (08:00)
[2018-06-29] MEDS: Docusate 100 MG CAP PO SCH ×2 (08:09→20:12)
[2018-06-29] MEDS: Aspirin 325 MG TAB PO SCH (08:09)
[2018-06-29] MEDS: Pregabalin 75 MG CAP PO SCH ×2 (08:09→20:12)
[2018-06-29] MEDS: Ketorolac Tromethamine 30 MG/ML VIAL IVP SCH ×3 (08:15→20:11)
--- NOTE | 2018-06-29 08:28 | RAD ---
CHEST ONE VIEW: HISTORY: Dyspnea. Followup. COMPARISON: 06/28/2018 FINDINGS: The cardiac silhouette is magnified by projection. The pulmonary vasculature is at the upper limits of normal. The mediastinum is midline with postoperative changes evident. A left subclavian central venous catheter remains in place. The endotracheal catheter is no longer visible. No evidence of p neumothorax. The lungs remain hyperinflated. IMPRESSION: Interval extubation. Otherwise stable postoperative appearance of the chest. POS: LUDA
[2018-06-29] MEDS: Famotidine/PF 20 mg/2ml Vial SLOW IVP SCH (08:52)
[2018-06-29] MEDS ORDERED: Insulin Glargine 5 UNITS in Pre-Filled Syringe 1 EACH SC SCH (09:30)
--- NOTE | 2018-06-29 13:29 | PRG ---
DATE OF SERVICE: 06/29/2018 SUBJECTIVE: Mr. Cheng is doing well. He underwent a bypass surgery yesterday. No current complaints. He is extubated. He is on low-dose epinephrine, but has been titrated down. OBJECTIVE: VITAL SIGNS: Blood pressure 97/54, pulse 82, and temperature afebrile. LUNGS: Clear to auscultation. HEART: Regular rate and rhythm. ABDOMEN: Soft, nontender, and nondistended. EXTREMITIES: No edema. IMPRESSION: 1. Coronary artery disease. 2. Status post bypass surgery. 3. Tobacco abuse. 4. Peripheral vascular disease. RECOMMENDATIONS: We will add statin therapy. We will hold off on beta-vu therapy until his blood pressure is more stable and off pressors. Recommend incentive spirometry and physical therapy. Chest tubes in place and will be discontinued per Dr. Crooks. Job ID: [id number]
[2018-06-29] MEDS ORDERED: Furosemide 40 MG/4 ML VIAL SLOW IVP SCH (17:00)
[2018-06-29] MEDS ORDERED: Artificial Tears 18 DROP/0.9 ML EA EYE PRN (17:17)
[2018-06-29] MEDS ORDERED: Zolpidem Tartrate 5 MG TAB PO PRN (17:17)
[2018-06-29] MEDS ORDERED: Bisacodyl 10 MG SUPP PR PRN (17:17)
[2018-06-29] MEDS ORDERED: Mag-Al 1200 mg/1200 mg/30 ML UDCUP PO PRN (17:17)
[2018-06-29] MEDS ORDERED: Guaifenesin DM 100-10/5 ML UDCUP PO PRN (17:17)
[2018-06-29] MEDS ORDERED: Nitroglycerin 0.4 MG TAB (25 Tab Bottle) SL PRN (17:17)
[2018-06-29] MEDS ORDERED: Mineral Oil ENEMA PR PRN (17:17)
--- NOTE | 2018-06-29 19:20 | PRG ---
DATE OF SERVICE: 06/29/2018 SUBJECTIVE: Mr. Cheng was weaned per protocol. He looks great. He still has chest tube in place. OBJECTIVE: VITAL SIGNS: Heart rates in the 90s, blood pressure 100/77, respiratory rate 17. LUNGS: Clear. HEART: Regular rhythm. ABDOMEN: Soft. EXTREMITIES: No edema. Intake and outputs -799. Chest tube drainage 250 mL overnight. IMPRESSION: 1. Status post coronary artery bypass grafting. 2. History of tobacco up until this admission. 3. Blood loss anemia. PLAN: I will add nebulizer treatments. He is not having any difficulty breathing, but says he is coughing up some mucus, so this will help facilitate secretion clearance hopefully. His electrolytes are stable. His creatinine is stable at 0.83. Hemoglobin is 10.9. Overall, he looks good. Job ID: [id number]
[2018-06-29] MEDS: Atorvastatin Calcium 40 MG TAB PO SCH (20:12)
--- NOTE | 2018-06-29 21:59 | PDOC.PN ---
- Subjective Encounter Start Date: 06/29/18 Encounter Start Time: 14:00 Doing very well. Has no complaints. - Objective Resuscitation Status - Order Detail: 06/25/18 01:20 Resuscitation Status Routine Resuscitation Status: FULL: Full Resuscitation Vital Signs & Weight: Vital Signs (12 hours) Temp Pulse Ox 06/29/18 19:45 99 06/29/18 19:00 98.4 F 06/29/18 15:00 98.3 F 06/29/18 11:00 98.4 F Weight Admit Weight 67 lb 3.2 oz Weight 158 lb 4.67 oz Most Recent Monitor Data Heart Rate from ECG 79 NIBP 82/50 NIBP BP-Mean 64 Respiration from ECG 16 SpO2 100 I&O: 06/28/18 06/29/18 06/30/18 06:59 06:59 06:59 Intake Total 1317 2586 1390 Output Total 2445 3385 945 Balance -1128 -799 445 Result Diagrams: 06/29/18 03:11 06/29/18 03:11 Additional Labs: Accuchecks 06/29/18 06/29/18 06/29/18 17:27 09:41 06:01 POC Glucose 136 H 103 101 06/29/18 06/28/18 06/28/18 02:08 23:44 22:08 POC Glucose 100 123 H 106 Phys Exam - Physical Examination Constitutional: NAD Respiratory: no wheezing, no rales, no rhonchi Cardiovascular: RRR, no significant murmur, no rub Gastrointestinal: soft, non-tender, no distention, positive bowel sounds Musculoskeletal: no edema Psychiatric: normal affect, A&O x 3 Dx/Plan (1) CAD (coronary artery disease) Code(s): I25.10 - ATHSCL HEART DISEASE OF [place] CORONARY ARTERY W/O ANG PCTRS Status: Acute (2) COPD (chronic obstructive pulmonary disease) Status: Acute (3) Non-ST elevation [place] (NSTEMI) Code(s): I21.4 - NON-ST ELEVATION (NSTEMI) MYOCARDIAL INFARCTION Status: Acute Comment: S/p cardiac cath. Found to have left main disease. For CABG on thursday. (4) Tobacco abuse disorder Code(s): Z72.0 - TOBACCO USE Status: Acute - Plan * Post-op CABG yesterday. Doing very well. * Drain in place. * Post-op course per surg. * Instructed on IS use. .
[2018-06-29] MEDS ORDERED: Norepinephrine 8 MG/250 ML BAG IVPB PRN (22:56)
[2018-06-29] MEDS ORDERED: Sodium Chloride 0.9% 500 ML IV SCH (23:00)
[2018-06-30] MEDS: HYDROmorphone 2 MG TAB PO PRN ×4 (00:34→20:35)
[2018-06-30] MEDS: Ketorolac Tromethamine 30 MG/ML VIAL IVP SCH (01:59)
[2018-06-30 05:11] LABS: #Eosinphils 0.2 thou/uL (0.0-0.7); Mean Corpuscular Hemoglobin 31.1 pg (27.0-31.0); RBC Distribution Width 11.7 % (11.5-14.5)
[2018-06-30 05:22] LABS: #Basophils 0.1 thou/uL (0.0-0.2); #Lymphocytes 2.1 thou/uL (1.20-3.40); #Monocytes 1.8 thou/uL (0.11-0.59); #Neutrophils 10.4 thou/uL (1.40-6.50); %Basophils 0.3 % (0.0-1.0); %Eosinophils 1.1 % (0.0-10.0); %Lymphocytes 14.7 % (21.0-51.0); %Monocytes 12.1 % (0.0-10.0); %Neutrophils 71.8 % (42.0-75.0); Hemoglobin 10.3 g/dL (14.0-18.0); Mean Corpuscular HGB CONC 31.9 g/dL (32.0-36.0); Mean Corpuscular Volume 97.6 fL (78.0-98.0); Mean Platelet Volume 7.6 fL (7.4-10.4); Platelet Count 144 thou/uL (130-400); Red Blood Cell (RBC) Count 3.31 mill/uL (4.70-6.10); White Blood Cell (WBC) Count 14.4 thou/uL (4.8-10.8)
[2018-06-30 05:28] VITALS: BMI 24.6
[2018-06-30 05:30] LABS: Anion Gap 9 mmol/L (10-20); BUN (Urea Nitrogen) 25 mg/dL (8.4-25.7); Calc. Creatinine Clearance 64 mL/min (70-130); Calcium 8.8 mg/dL (7.8-10.44); Carbon Dioxide 24 mmol/L (23-31); Chloride 107 mmol/L (98-107); Estimated GFR-MDRD 68; Glucose 130 mg/dL (83-110); Potassium 4.3 mmol/L (3.5-5.1); Sodium 136 mmol/L (136-145)
[2018-06-30] MEDS: Aspirin 325 mg Enteric Coated Tablet PO SCH (08:34)
[2018-06-30] MEDS: Docusate 100 MG CAP PO SCH ×2 (08:35→20:34)
[2018-06-30] MEDS: Pregabalin 75 MG CAP PO SCH ×2 (08:35→20:34)
--- NOTE | 2018-06-30 08:52 | RAD ---
PORTABLE UPRIGHT FRONTAL CHEST RADIOGRAPH: 06/30/2018 HISTORY: Evaluate chest following CABG. COMPARISON: 06/29/2018 FINDINGS: A left-sided vascular catheter is present with the distal tip overlying the expected location of the SVC. Midline sternotomy wires and mediastinal clips are present. Heart and mediastinal contours are stable. A drainage catheter overlies the midline lower mediastinum. Stable mild increased linear d ensity in the left base. No lobar consolidation or alveolar edema. IMPRESSION: No interval change. POS: LUDA
--- NOTE | 2018-06-30 10:24 | PRG ---
DATE OF SERVICE: 06/30/2018 SUBJECTIVE: Mr. Cheng is doing well. He did have episode of hypotension overnight. He is placed back on Levophed. He is currently sitting up with increased blood pressure. He also received a normal saline bolus. OBJECTIVE: VITAL SIGNS: Blood pressure 140/60, pulse 93, temperature afebrile. LUNGS: Clear to auscultation. HEART: Regular rate and rhythm. ABDOMEN: Soft, nontender, nondistended. EXTREMITIES: No edema. IMPRESSION: 1. Coronary artery disease. 2. Status post bypass surgery. 3. Hypotension. 4. Tobacco abuse. RECOMMENDATIONS: 1. We will continue to titrate down his Levophed. 2. Hold beta vu therapy, MIGUEL inhibitor therapy, and ARB due to hypotension. 3. Incentive spirometry and ambulation. 4. Chest tube recommendations per CV surgery. Job ID: [id number]
--- NOTE | 2018-06-30 17:02 | PDOC.PN ---
- Subjective Encounter Start Date: 06/30/18 Encounter Start Time: 14:45 Doing well. Has been up and walked in [place] a bit. Fatigue and weakness, but no pain. No other complaints. - Objective Resuscitation Status - Order Detail: 06/25/18 01:20 Resuscitation Status Routine Resuscitation Status: FULL: Full Resuscitation Vital Signs & Weight: Vital Signs (12 hours) Temp Pulse Pulse Pulse Resp BP BP 06/30/18 15:43 89 18 06/30/18 13:17 89 80 120/61 99/56 L 06/30/18 12:00 99.0 F 06/30/18 11:30 06/30/18 11:26 85 16 06/30/18 09:03 94 94 119/67 93/63 06/30/18 08:00 06/30/18 07:00 100.1 F H Pulse Ox Pulse Ox Pulse Ox 06/30/18 15:43 99 06/30/18 13:17 98 100 06/30/18 12:00 06/30/18 11:30 99 06/30/18 11:26 99 06/30/18 09:03 98 100 06/30/18 08:00 2 L 06/30/18 07:00 Weight Admit Weight 67 lb 3.2 oz Weight 176 lb 2.389 oz Most Recent Monitor Data Heart Rate from ECG 88 NIBP 103/55 NIBP BP-Mean 72 Respiration from ECG 13 SpO2 98 I&O: 06/29/18 06/30/18 07/01/18 06:59 06:59 06:59 Intake Total 2586 2288.1 480 Output Total 3385 1470 460 Balance -799 818.1 20 Result Diagrams: 06/30/18 04:17 06/30/18 03:30 Additional Labs: Accuchecks 06/29/18 06/29/18 21:50 17:27 POC Glucose 155 H 136 H Phys Exam - Physical Examination Constitutional: NAD Respiratory: no wheezing, no rales, no rhonchi, clear to auscultation bilateral Cardiovascular: RRR, no significant murmur Sternotomy incision looks good. Gastrointestinal: soft, non-tender, no distention, positive bowel sounds Musculoskeletal: no edema PT pulses present, but weak, DP absent. Neurological: non-focal Psychiatric: normal affect, A&O x 3 Dx/Plan (1) CAD (coronary artery disease) Code(s): I25.10 - ATHSCL HEART DISEASE OF [place] CORONARY ARTERY W/O ANG PCTRS Status: Acute (2) COPD (chronic obstructive pulmonary disease) Status: Acute (3) Non-ST elevation [place] (NSTEMI) Code(s): I21.4 - NON-ST ELEVATION (NSTEMI) MYOCARDIAL INFARCTION Status: Acute Comment: S/p cardiac cath. Found to have left main disease. For CABG on thursday. (4) Tobacco abuse disorder Code(s): Z72.0 - TOBACCO USE Status: Acute (5) Hypotension Status: Acute (6) PVD (peripheral vascular disease) Code(s): I73.9 - PERIPHERAL VASCULAR DISEASE, UNSPECIFIED Status: Acute - Plan * BP still borderline and requiring some support with pressor. Weaning as possible. * Continued to encourage IS. * Ambulate as tolerated. * Cards holding BB, ACEI due to hypotension.
[2018-06-30] MEDS: Atorvastatin Calcium 40 MG TAB PO SCH (20:34)
--- NOTE | 2018-06-30 20:57 | PRG ---
DATE OF SERVICE: 06/30/2018 SUBJECTIVE: Mr. Cheng is doing well. He still has chest tube in place. He had 1 episode of hypotension yesterday, although he recovered quickly with volume infusion. No clinical evidence of tamponade. OBJECTIVE: VITAL SIGNS: Heart rate is 102, respiratory rate 16, oximetry is 97% on 2 L, blood pressure . LUNGS: Clear. HEART: Regular rhythm. S1 and S2 normal. ABDOMEN: Soft. EXTREMITIES without asymmetry. LABORATORY DATA: White count 14.4, hemoglobin 10.3, and platelets 144. Electrolytes are normal. Intake and outputs positive 819 mL . Chest tube drains 250 mL. He is still intermittently draining, but this afternoon at 2 o'clock, 10 mL, 3 o'clock, 20 mL, but none most of the day. IMPRESSION: 1. Status post coronary artery bypass grafting. 2. Questionable chronic obstructive pulmonary disease. For some reason nebulized treatments to get started he is clinically stable at this time. Job ID: [id number]
[2018-07-01 05:37] LABS: #Eosinphils 0.1 thou/uL (0.0-0.7); #Lymphocytes 1.6 thou/uL (1.20-3.40); #Monocytes 1.2 thou/uL (0.11-0.59); #Neutrophils 8.7 thou/uL (1.40-6.50); %Basophils 0.3 % (0.0-1.0); %Eosinophils 1.3 % (0.0-10.0); %Lymphocytes 13.4 % (21.0-51.0); %Monocytes 9.9 % (0.0-10.0); %Neutrophils 75.1 % (42.0-75.0); Mean Corpuscular HGB CONC 32.7 g/dL (32.0-36.0); Mean Platelet Volume 7.3 fL (7.4-10.4); Platelet Count 136 thou/uL (130-400); RBC Distribution Width 11.6 % (11.5-14.5); Red Blood Cell (RBC) Count 3.12 mill/uL (4.70-6.10); White Blood Cell (WBC) Count 11.6 thou/uL (4.8-10.8)
[2018-07-01 05:59] LABS: Anion Gap 9 mmol/L (10-20); BUN (Urea Nitrogen) 16 mg/dL (8.4-25.7); Calc. Creatinine Clearance 86 mL/min (70-130); Calcium 8.8 mg/dL (7.8-10.44); Carbon Dioxide 27 mmol/L (23-31); Chloride 105 mmol/L (98-107); Estimated GFR-MDRD Greater than 90; Glucose 121 mg/dL (83-110); Sodium 137 mmol/L (136-145)
[2018-07-01] MEDS: Pregabalin 75 MG CAP PO SCH ×2 (08:28→20:17)
[2018-07-01] MEDS: HYDROmorphone 2 MG TAB PO PRN ×3 (08:29→16:58)
[2018-07-01] MEDS: Aspirin 325 mg Enteric Coated Tablet PO SCH (08:29)
[2018-07-01] MEDS: Docusate 100 MG CAP PO SCH ×2 (08:29→20:17)
--- NOTE | 2018-07-01 13:58 | PDOC.PN ---
- Subjective Encounter Start Date: 07/01/18 Encounter Start Time: 10:45 Doing well. No complaints. Had Collier and chest drain removed. - Objective Resuscitation Status - Order Detail: 06/25/18 01:20 Resuscitation Status Routine Resuscitation Status: FULL: Full Resuscitation Vital Signs & Weight: Vital Signs (12 hours) Temp Pulse Resp Pulse Ox 07/01/18 12:00 98.3 F 07/01/18 10:58 86 19 95 07/01/18 08:00 98.2 F 98 07/01/18 07:16 93 L 07/01/18 07:06 93 19 93 L 07/01/18 04:00 98.8 F 07/01/18 02:08 88 18 97 Weight Admit Weight 67 lb 3.2 oz Weight 174 lb 9.698 oz Most Recent Monitor Data Heart Rate from ECG 97 NIBP 102/57 NIBP BP-Mean 74 Respiration from ECG 21 SpO2 98 I&O: 06/30/18 07/01/18 07/02/18 06:59 06:59 06:59 Intake Total 2288.1 910.5 360 Output Total 1470 1450 1030 Balance 818.1 -539.5 -670 Result Diagrams: 07/01/18 05:00 07/01/18 05:00 Phys Exam - Physical Examination Constitutional: NAD Respiratory: no wheezing, no rales, no rhonchi, clear to auscultation bilateral Cardiovascular: RRR, no significant murmur Gastrointestinal: soft, non-tender, no distention, positive bowel sounds Musculoskeletal: no edema Psychiatric: normal affect, A&O x 3 Dx/Plan (1) CAD (coronary artery disease) Code(s): I25.10 - ATHSCL HEART DISEASE OF [place] CORONARY ARTERY W/O ANG PCTRS Status: Acute (2) COPD (chronic obstructive pulmonary disease) Status: Acute (3) Non-ST elevation [place] (NSTEMI) Code(s): I21.4 - NON-ST ELEVATION (NSTEMI) MYOCARDIAL INFARCTION Status: Acute Comment: S/p cardiac cath. Found to have left main disease. For CABG on thursday. (4) Tobacco abuse disorder Code(s): Z72.0 - TOBACCO USE Status: Acute (5) Hypotension Status: Acute (6) PVD (peripheral vascular disease) Code(s): I73.9 - PERIPHERAL VASCULAR DISEASE, UNSPECIFIED Status: Acute - Plan * Doing very well overall. * Still has some intermittent hypotension. * Continue to mobilize * Wean pressors as tolerated.
[2018-07-01] MEDS ORDERED: Magnesium Citrate 300 ML BOT PO PRN (14:38)
[2018-07-01] MEDS ORDERED: Magnesium Citrate 300 ML BOT PO SCH (15:00)
--- NOTE | 2018-07-01 17:18 | PRG ---
DATE OF SERVICE: SUBJECTIVE: Mr. Cheng is doing well. He is off pressors. No current complaints. His blood pressure is improved at 124/63. No current complaints. OBJECTIVE: VITAL SIGNS: Blood pressure 124/63, pulse 92, respirations 20. LUNGS: Clear to auscultation. HEART: Regular rate and rhythm. ABDOMEN: Soft, nontender. EXTREMITIES: No edema. IMPRESSION: 1. Coronary artery disease. 2. Status post bypass surgery. 3. Tobacco abuse. RECOMMENDATIONS: 1. Continue statin therapy. 2. Hold beta vu therapy until blood pressure remains stable. 3. Incentive spirometry and physical therapy. Job ID: [id number]
--- NOTE | 2018-07-01 20:14 | PRG ---
DATE OF SERVICE: 07/01/2018 SUBJECTIVE: Faizan Cheng has no complaints. Chest tubes are out. OBJECTIVE: VITAL SIGNS: Heart rate is 98, respiratory rate is 16, oximetry is 97% on room air, blood pressure 105/62. LUNGS: Clear. HEART: Regular rhythm. ABDOMEN: Soft and nontender. LABORATORY DATA: White count 11.6, hemoglobin 10.0, platelets 136. Sodium 137, potassium 4, chloride 105, bicarb 27, BUN 16, and creatinine 0.7. IMPRESSION: 1. Status post coronary artery bypass grafting. 2. Prior tobacco use, clinically stable, move out of Critical Care Unit in my opinion when Cardiothoracic Surgery feels he is stable. Job ID: [id number]
[2018-07-01] MEDS: Atorvastatin Calcium 40 MG TAB PO SCH (20:17)
[2018-07-01] MEDS ORDERED: Zolpidem Tartrate 5 MG TAB PO PRN (22:49)
[2018-07-01] MEDS ORDERED: Bisacodyl 5 MG TAB PO PRN (22:49)
[2018-07-01] MEDS ORDERED: Artificial Tears 18 DROP/0.9 ML EA EYE PRN (22:49)
[2018-07-01] MEDS ORDERED: Mineral Oil ENEMA PR PRN (22:49)
[2018-07-01] MEDS ORDERED: Guaifenesin DM 100-10/5 ML UDCUP PO PRN (22:49)
[2018-07-01] MEDS ORDERED: Nitroglycerin 0.4 MG TAB (25 Tab Bottle) SL PRN (22:49)
[2018-07-01] MEDS ORDERED: Bisacodyl 10 MG SUPP PR PRN (22:49)
[2018-07-01] MEDS ORDERED: Mag-Al 1200 mg/1200 mg/30 ML UDCUP PO PRN (22:49)
[2018-07-02] MEDS: HYDROmorphone 2 MG TAB PO PRN ×3 (01:11→21:29)
[2018-07-02] MEDS ORDERED: Aspirin 325 mg Enteric Coated Tablet PO SCH (09:00)
[2018-07-02] MEDS: Pregabalin 75 MG CAP PO SCH ×2 (09:33→21:31)
[2018-07-02] MEDS: Aspirin 325 mg Enteric Coated Tablet PO SCH (09:33)
[2018-07-02] MEDS: Docusate 100 MG CAP PO SCH ×2 (09:33→21:29)
[2018-07-02] MEDS ORDERED: ALPRAZolam 0.25 MG TAB PO PRN (10:30)
--- NOTE | 2018-07-02 11:22 | PRG ---
DATE OF SERVICE: 07/02/2018 SUBJECTIVE: Faizan Cheng has no complaints other than having to get up to the bathroom, all morning on and off for bowel movements and urinate. OBJECTIVE: VITAL SIGNS: He is afebrile, heart rate is 104, respiratory rate is 22, oximetry is 94%, and blood pressure is 119/59. Intake and output are negative 1230. LUNGS: Clear. HEART: Regular rhythm. ABDOMEN: Soft. IMPRESSION AND PLAN: 1. Chronic obstructive pulmonary disease probably mild. 2. Status post coronary artery bypass grafting. Overall, he appears stable. I will see him whenever he comes back in town to see Dr. Crooks. We will continue to follow him while he is in the hospital. Job ID: [id number]
[2018-07-02] MEDS: clonazePAM 0.5 MG TAB PO PRN (12:11)
[2018-07-02] MEDS: Bisacodyl 5 MG TAB PO PRN (12:11)
[2018-07-02] MEDS ORDERED: Tamsulosin HCl 0.4 MG CAP PO SCH (13:00)
[2018-07-02] MEDS ORDERED: Polyethylene Glycol 3350 17 GM Packet PO PRN (13:26)
[2018-07-02] MEDS: Propranolol 10 MG TAB PO SCH ×2 (14:22→21:29)
[2018-07-02] MEDS ORDERED: Sodium Chloride 0.9% 20 ML ONE (20:33)
--- NOTE | 2018-07-02 20:58 | PDOC.PN ---
- Subjective Encounter Start Date: 07/02/18 Encounter Start Time: 11:30 Doing well, but having some problems with BM's. Had some constipation post CABG. BP has stabilized and he received Mag citrate yesterday. Only a couple of very small stools since. Has had some difficulty voiding. Feels the need. - Objective Resuscitation Status - Order Detail: 06/25/18 01:20 Resuscitation Status Routine Resuscitation Status: FULL: Full Resuscitation Vital Signs & Weight: Vital Signs (12 hours) Temp Pulse Pulse Pulse Resp BP BP 07/02/18 18:35 88 14 07/02/18 14:59 98 16 07/02/18 14:18 97.5 F L 102 H 20 07/02/18 13:56 105 H 98 130/60 116/65 07/02/18 11:21 104 H 16 BP Pulse Ox Pulse Ox Pulse Ox 07/02/18 18:35 93 L 07/02/18 14:59 07/02/18 14:18 130/60 93 L 07/02/18 13:56 96 95 07/02/18 11:21 Weight Admit Weight 67 lb 3.2 oz Weight 166 lb 3.2 oz Most Recent Monitor Data Heart Rate from ECG 97 NIBP 105/58 NIBP BP-Mean 69 Respiration from ECG 13 SpO2 95 I&O: 07/01/18 07/02/18 07/03/18 06:59 06:59 06:59 Intake Total 910.5 720 Output Total 1450 1950 Balance -539.5 -1230 Result Diagrams: 07/01/18 05:00 07/01/18 05:00 Phys Exam - Physical Examination Constitutional: NAD Respiratory: no wheezing, no rales, no rhonchi Cardiovascular: RRR, no significant murmur, no rub Gastrointestinal: soft, non-tender, no distention Musculoskeletal: no edema Neurological: non-focal Psychiatric: normal affect, A&O x 3 Dx/Plan (1) CAD (coronary artery disease) Code(s): I25.10 - ATHSCL HEART DISEASE OF [place] CORONARY ARTERY W/O ANG PCTRS Status: Acute Comment: CABG x 4 (2) COPD (chronic obstructive pulmonary disease) Status: Acute (3) Non-ST elevation [place] (NSTEMI) Code(s): I21.4 - NON-ST ELEVATION (NSTEMI) MYOCARDIAL INFARCTION Status: Acute Comment: S/p cardiac cath. Found to have left main disease. For CABG on thursday. (4) Tobacco abuse disorder Code(s): Z72.0 - TOBACCO USE Status: Acute (5) Hypotension Status: Acute (6) PVD (peripheral vascular disease) Code(s): I73.9 - PERIPHERAL VASCULAR DISEASE, UNSPECIFIED Status: Acute (7) Constipation Code(s): K59.00 - CONSTIPATION, UNSPECIFIED Status: Acute (8) Urine retention Code(s): R33.9 - RETENTION OF URINE, UNSPECIFIED Status: Acute - Plan * Post CABG. * Hypotension resolved. Moved to floor. * Doing well. * Has been dealing with some constipation. No significant improvement with Mag Citrate. * Will add some Miralax. * Had straight cath today with 450 residual. * Collier as needed. * Urine retention may be related to constipation. * Continue PT.
[2018-07-02] MEDS: Atorvastatin Calcium 40 MG TAB PO SCH (21:29)
--- NOTE | 2018-07-02 23:26 | PDOC.CTH ---
Cardiology Progress Note - Subjective Patient seen at 1415. Currently having urinary retention and about to have ortiz placed. Walked in [place] with PT without difficulty. C/O essential tremor kicking back in since Inderal held. BBLocker about to be resumed now. - Objective Vital Signs Temp Pulse Pulse Pulse Resp BP BP 07/02/18 22:54 79 14 07/02/18 21:16 99.3 F 95 20 07/02/18 18:35 88 14 07/02/18 14:59 98 16 07/02/18 14:18 97.5 F L 102 H 20 07/02/18 13:56 105 H 98 130/60 116/65 BP Pulse Ox Pulse Ox Pulse Ox 07/02/18 22:54 92 L 07/02/18 21:16 116/56 L 92 L 07/02/18 18:35 93 L 07/02/18 14:59 07/02/18 14:18 130/60 93 L 07/02/18 13:56 96 95 Admit Weight 67 lb 3.2 oz Weight 166 lb 3.2 oz 07/01/18 07/02/18 07/03/18 06:59 06:59 06:59 Intake Total 910.5 720 Output Total 1450 1950 Balance -539.5 -1230 - Physical Examination General/Neuro: alert & oriented x3 Neck: no JVD present Lungs: CTA Heart: RRR Abdomen: NT/ND Extremities: other: - Telemetry Telemetry Rhythm: no edema - Labs Result Diagrams: 07/01/18 05:00 07/01/18 05:00 Troponin/CKMB Troponin I 0.336 ng/mL (< 0.028) H* 06/25/18 05:58 - Assessment/Plan 1. CAD s/p CABG 2. HTN 3. PAD Overall doing well. Continue monitoring urine output post-ortiz. Continue ASA, bblocker and statin.
[2018-07-03] MEDS: clonazePAM 0.5 MG TAB PO PRN (00:23)
[2018-07-03] MEDS ORDERED: Tamsulosin HCl 0.4 MG CAP PO SCH (09:00)
[2018-07-03] MEDS: HYDROmorphone 2 MG TAB PO PRN ×3 (09:32→20:25)
[2018-07-03] MEDS: Propranolol 10 MG TAB PO SCH ×4 (09:33→22:08)
[2018-07-03] MEDS: Aspirin 325 mg Enteric Coated Tablet PO SCH (09:33)
[2018-07-03] MEDS: Pregabalin 75 MG CAP PO SCH ×2 (09:33→20:24)
[2018-07-03] MEDS: Docusate 100 MG CAP PO SCH ×2 (09:34→20:23)
--- NOTE | 2018-07-03 13:27 | PRG ---
DATE OF SERVICE: 07/03/2018 SUBJECTIVE: The patient is currently doing well without complaints except for constipation. OBJECTIVE: VITAL SIGNS: On exam, temperature 98.4, pulse 90, blood pressure 119/57, and O2 saturation 93%. HEENT: Unremarkable. NECK: No JVD. CHEST: Clear anteriorly. CARDIAC: S1 and S2, regular. Median sternotomy incision appears to be healing well. EXTREMITIES: No clubbing, cyanosis, or edema. LABORATORY DATA: No labs were done today. ASSESSMENT: 1. Post coronary artery bypass grafting with stable respiratory status. 2. Chronic obstructive pulmonary disease, mild. PLAN: Continue current medications. Job ID: [id number]
--- NOTE | 2018-07-03 19:01 | PDOC.CTH ---
Cardiology Progress Note - Subjective He had a BM this morning. Had to have a ortiz inserted again due to urinary retention. - Objective Vital Signs Temp Pulse Pulse Pulse Resp BP BP 07/03/18 18:27 86 16 07/03/18 15:28 95 16 07/03/18 14:12 97.7 F 83 16 07/03/18 12:16 101 H 95 119/57 L 102/53 L 07/03/18 11:31 82 16 07/03/18 07:30 98.4 F 90 18 07/03/18 07:13 82 16 BP BP Pulse Ox Pulse Ox Pulse Ox 07/03/18 18:27 92 L 07/03/18 15:28 07/03/18 14:12 111/59 L 93 L 07/03/18 12:16 93 L 93 L 07/03/18 11:31 07/03/18 07:30 120/59 L 92 L 07/03/18 07:13 93 L Admit Weight 67 lb 3.2 oz Weight 169 lb 9.6 oz 07/02/18 07/03/18 07/04/18 06:59 06:59 06:59 Intake Total 720 280 Output Total 1950 325 Balance -1230 -45 - Physical Examination General/Neuro: alert & oriented x3, NAD Neck: no JVD present Lungs: unlabored respirations Heart: RRR Abdomen: NT/ND Extremities: other: (no edema.) - Telemetry Telemetry Rhythm: NSR - Labs Result Diagrams: 07/01/18 05:00 07/01/18 05:00 Troponin/CKMB Troponin I 0.336 ng/mL (< 0.028) H* 06/25/18 05:58 - Assessment/Plan 1. CAD s/p CABG 2. HTN 3. PAD 4. Urinary retention. PLAN: - Increase PT as tolerated. - ASA, statin, for life. - BB only, no ACEI due to borderline low BP.
[2018-07-03] MEDS ORDERED: Sodium Chloride 0.9% 20 ML ONE (19:34)
[2018-07-03] MEDS: Atorvastatin Calcium 40 MG TAB PO SCH (20:23)
[2018-07-03] MEDS: Tamsulosin HCl 0.4 MG CAP PO SCH (20:25)
--- NOTE | 2018-07-03 20:31 | EKG ---
Test Reason : Blood Pressure : / mmHG Vent. Rate : 065 BPM Atrial Rate : 065 BPM P-R Int : 180 ms QRS Dur : 080 ms QT Int : 404 ms P-R-T Axes : 077 031 061 degrees QTc Int : 420 ms Sinus rhythm with Fusion complexes Otherwise normal ECG Confirmed by DAISHA JEFF ([id number]), editorial specialist LORIN BENAVIDES ([id number]) on 07/03/2018 8:31:16 PM Referred By: Confirmed By:DAISHA JEFF
[2018-07-03] MEDS: Bisacodyl 5 MG TAB PO PRN (20:32)
--- NOTE | 2018-07-03 22:26 | PRG ---
DATE OF SERVICE: 07/03/2018 SUBJECTIVE: The patient feels generally weak and fatigued. Collier catheter was placed due to urinary retention. He denies any chest pain, shortness of breath, or palpitations. No nausea, vomiting, or diaphoresis reported. OBJECTIVE: VITAL SIGNS: Temperature 98.2, pulse 83, respiration 16, blood pressure 111/59, and O2 saturation 93% on room air. Telemetry monitoring by my review showed sinus rhythm. GENERAL: A 78-year-old male, in no apparent distress. LUNGS: Showed diminished air entry at bilateral bases. HEART: S1 and S2 present. Regular. ABDOMEN: Soft. Bowel sounds present. EXTREMITIES: No calf tenderness. REVIEW OF SYSTEMS: As discussed above. LABORATORY FINDINGS: WBC on was 11.6 with hemoglobin of 10, platelet count of 136. Sodium 137, potassium 4 with BUN 16, creatinine 0.79. IMPRESSION: 1. Non-ST elevation myocardial infarction/coronary artery disease, status post coronary artery bypass grafting. 2. Hypertension. 3. Urinary retention. 4. Peripheral vascular disease. 5. Tobacco dependence. 6. Current medications were reviewed. PLAN: We will continue Collier catheter for now. We will add stool softeners. Continue aspirin and low-dose beta blockers along with Flomax. We will resume MIGUEL inhibitor once blood pressure improves. We will consult Physical Therapy and Occupation Therapy. Plan was discussed with the patient and the family at the bedside. Job ID: [id number]
[2018-07-04] MEDS: HYDROmorphone 2 MG TAB PO PRN ×2 (01:04→08:30)
[2018-07-04] MEDS: Polyethylene Glycol 3350 17 GM Packet PO SCH (08:35)
[2018-07-04] MEDS: Pregabalin 75 MG CAP PO SCH ×2 (08:37→20:50)
[2018-07-04] MEDS: Senokot S 8.6-50 MG TAB PO SCH ×2 (08:37→20:50)
[2018-07-04] MEDS: Aspirin 325 mg Enteric Coated Tablet PO SCH (08:37)
[2018-07-04] MEDS: Propranolol 10 MG TAB PO SCH (08:37)
[2018-07-04] MEDS: Propranolol HCl 20 MG TAB PO SCH ×3 (09:05→22:14)
[2018-07-04] MEDS ORDERED: Propranolol 10 MG TAB PO SCH (09:09)
--- NOTE | 2018-07-04 11:41 | PRG ---
DATE OF SERVICE: 07/04/2018 SUBJECTIVE: The patient is awake and alert, and in no distress. OBJECTIVE: VITAL SIGNS: Temperature is 99.0, pulse 85, respirations 14, sat 95% on room air, blood pressure 137/82. HEENT: Unremarkable. NECK: No adenopathy or JVD. CHEST: Fairly clear. CARDIAC: S1 and S2, regular. ABDOMEN: Soft. EXTREMITIES: No edema. LABORATORY DATA: No labs were obtained today. ASSESSMENT: 1. Post coronary artery bypass grafting with stable respiratory status. 2. Chronic obstructive pulmonary disease, which is stable. PLAN: Continue current medications. Job ID: [id number]
[2018-07-04] MEDS: traMADol HCl 50 MG TAB PO PRN (15:00)
--- NOTE | 2018-07-04 18:27 | PDOC.CTH ---
Cardiology Progress Note - Subjective No new issues. Had BM today. - Objective Vital Signs Temp Pulse Pulse Pulse Resp BP BP 07/04/18 14:57 82 12 07/04/18 14:33 85 82 117/57 L 116/64 07/04/18 12:07 75 77 96/50 L 100/57 L 07/04/18 12:00 98.3 F 79 18 07/04/18 08:47 85 14 07/04/18 08:00 99 F 86 20 BP BP Pulse Ox Pulse Ox Pulse Ox 07/04/18 14:57 07/04/18 14:33 91 L 93 L 07/04/18 12:07 94 L 92 L 07/04/18 12:00 96/50 L 94 L 07/04/18 08:47 95 07/04/18 08:00 137/82 93 L Admit Weight 67 lb 3.2 oz Weight 167 lb 07/03/18 07/04/18 07/05/18 06:59 06:59 06:59 Intake Total 280 1240 Output Total 325 575 Balance -45 665 - Physical Examination General/Neuro: alert & oriented x3, NAD Neck: no JVD present Lungs: unlabored respirations Heart: RRR Abdomen: NT/ND Extremities: other: (no edema.) - Telemetry Telemetry Rhythm: NSR - Labs Result Diagrams: 07/01/18 05:00 07/01/18 05:00 Troponin/CKMB Troponin I 0.336 ng/mL (< 0.028) H* 06/25/18 05:58 - Assessment/Plan 1. CAD s/p CABG 2. HTN 3. PAD 4. Urinary retention. PLAN: - Increase PT as tolerated. - ASA, statin, for life. - BB only, no ACEI due to borderline low BP. - Collier still in place.
--- NOTE | 2018-07-04 19:07 | PDOC.PN ---
- Subjective Encounter Start Date: 07/04/18 Encounter Start Time: 11:00 Patient seen and examined for NSTEMI. Feels better. No new complaints. No overnight events - Objective Resuscitation Status - Order Detail: 06/25/18 01:20 Resuscitation Status Routine Resuscitation Status: FULL: Full Resuscitation MAR Reviewed: Yes Vital Signs & Weight: Vital Signs (12 hours) Temp Pulse Pulse Pulse Resp BP BP 07/04/18 18:43 75 14 07/04/18 14:57 82 12 07/04/18 14:33 85 82 117/57 L 116/64 07/04/18 12:07 75 77 96/50 L 100/57 L 07/04/18 12:00 98.3 F 79 18 07/04/18 08:47 85 14 07/04/18 08:00 99 F 86 20 BP BP Pulse Ox Pulse Ox Pulse Ox 07/04/18 18:43 94 L 07/04/18 14:57 07/04/18 14:33 91 L 93 L 07/04/18 12:07 94 L 92 L 07/04/18 12:00 96/50 L 94 L 07/04/18 08:47 95 07/04/18 08:00 137/82 93 L Weight Admit Weight 67 lb 3.2 oz Weight 167 lb Most Recent Monitor Data Heart Rate from ECG 97 NIBP 105/58 NIBP BP-Mean 69 Respiration from ECG 13 SpO2 95 I&O: 07/03/18 07/04/18 07/05/18 06:59 06:59 06:59 Intake Total 280 1240 Output Total 325 575 Balance -45 665 Result Diagrams: 07/01/18 05:00 07/01/18 05:00 EKG Reviewed by me: Yes (Tele SR) Phys Exam - Physical Examination Constitutional: NAD Respiratory: no wheezing, no rhonchi Cardiovascular: RRR, no rub Gastrointestinal: soft, non-tender, positive bowel sounds Musculoskeletal: no edema Dx/Plan - Plan ortiz catheter, DVT proph w/SCDs IMPRESSION: 1. Non-ST elevation myocardial infarction/coronary artery disease, status post coronary artery bypass grafting. 2. Hypertension. 3. Urinary retention. 4. Peripheral vascular disease. 5. Tobacco dependence. 6. Current medications were reviewed. PLAN: Cont ASA/Statins with BB DC ortiz in AM Check postvoid residual Cont PT/OT/Cardiac Rehab AM labs Cont Flomax Review of Systems - Review of Systems Cardiovascular: negative: chest pain, palpitations, orthopnea, paroxysmal nocturnal dyspnea, edema, light headedness, other Gastrointestinal: negative: Nausea, Vomiting, Abdominal Pain, Diarrhea, Constipation, Melena, Hematochezia, Other - Medications/Allergies Allergies/Adverse Reactions: Allergies Allergy/AdvReac Type Severity Reaction Status Date / Time codeine Allergy Verified 06/25/18 13:24 diphenhydramine Allergy Verified 06/25/18 13:24 [From Benadryl] Medications: Current Medications Al Hydroxide/Mg Hydroxide (Maalox) 30 ml PO Q4H PRN PRN Reason: Indigestion Albuterol/Ipratropium (Duoneb) 3 ml EZPAP [id number] [facility] Last Admin: 07/04/18 18:43 Dose: 3 ml Aspirin (Ecotrin) 325 mg PO DAILY [facility] Last Admin: 07/04/18 08:37 Dose: 325 mg Atorvastatin Calcium (Lipitor) 40 mg PO HS [facility] Last Admin: 07/03/18 20:23 Dose: 40 mg Bisacodyl (Dulcolax) 10 mg PO Q12H PRN PRN Reason: Constipation Last Admin: 07/03/18 20:32 Dose: 10 mg Bisacodyl (Dulcolax) 10 mg IA Q12H PRN PRN Reason: Constipation Clonazepam (Klonopin) 0.5 mg PO BIDPRN PRN PRN Reason: Anxiety/Agitation Last Admin: 07/03/18 00:23 Dose: 0.5 mg Guaifenesin/Dextromethorphan (Robitussin Dm) 15 ml PO Q4H PRN PRN Reason: Cough Magnesium Citrate (Citrate Of Magnesia 300 Ml Bot) 300 ml PO Q8H PRN PRN Reason: Constipation Mineral Oil (Fleet Mineral Oil) 133 ml IA DAILYPRN PRN PRN Reason: Constipation Nitroglycerin (Nitrostat) 0.4 mg SL Q5MIN PRN PRN Reason: Chest Pain Ondansetron HCl (Zofran) 4 mg IVP Q6H PRN PRN Reason: Nausea/Vomiting Pantoprazole Sodium (Protonix) 40 mg PO DAILY [facility] Last Admin: 07/04/18 08:37 Dose: 40 mg Polyethylene Glycol (Miralax) 17 gm PO DAILYPRN PRN PRN Reason: Constipation Last Admin: 07/02/18 21:30 Dose: 17 gm Polyethylene Glycol (Miralax) 17 gm PO DAILY [facility] Last Admin: 07/04/18 08:35 Dose: 17 gm Pregabalin (Lyrica) 75 mg PO BID [facility] Last Admin: 07/04/18 08:37 Dose: 75 mg Propranolol HCl (Inderal) 20 mg PO TID [facility] Last Admin: 07/04/18 14:56 Dose: 20 mg Senna/Docusate Sodium (Senokot S) 1 tab PO BID [facility] Last Admin: 07/04/18 08:37 Dose: 1 tab Sodium Chloride (Flush - Normal Saline) 10 ml IVF Q12HR [facility] Last Admin: 07/04/18 08:47 Dose: 10 ml Tamsulosin HCl (Flomax) 0.4 mg PO HS [facility] Last Admin: 07/03/18 20:25 Dose: 0.4 mg Tramadol HCl (Ultram) 50 mg PO Q6H PRN PRN Reason: Pain Last Admin: 07/04/18 15:00 Dose: 50 mg
[2018-07-04] MEDS ORDERED: Sodium Chloride 0.9% 10 ML ONE ×2 (20:10→22:49)
[2018-07-04] MEDS: Tamsulosin HCl 0.4 MG CAP PO SCH (20:51)
[2018-07-04] MEDS: Atorvastatin Calcium 40 MG TAB PO SCH (20:51)
[2018-07-04] MEDS ORDERED: Sodium Chloride 0.9% 250 ML 250 ML IVPB SCH (22:45)
[2018-07-04] MEDS ORDERED: Sodium Chloride 0.9% 250 ML IVPB SCH (23:00)
[2018-07-05] MEDS: traMADol HCl 50 MG TAB PO PRN (05:17)
[2018-07-05 05:52] LABS: Anion Gap 12 mmol/L (10-20); BUN (Urea Nitrogen) 21 mg/dL (8.4-25.7); Calc. Creatinine Clearance 79 mL/min (70-130); Calcium 8.6 mg/dL (7.8-10.44); Carbon Dioxide 27 mmol/L (23-31); Chloride 98 mmol/L (98-107); Estimated GFR-MDRD 89; Glucose 101 mg/dL (83-110); Sodium 133 mmol/L (136-145)
[2018-07-05] MEDS ORDERED: Amlodipine 5 MG TAB PO SCH (09:00)
[2018-07-05] MEDS ORDERED: Aspirin 81 mg Enteric Coated Tablet PO SCH (09:00)
[2018-07-05] MEDS ORDERED: Aspirin 325 MG TAB PO SCH (09:00)
[2018-07-05] MEDS: Polyethylene Glycol 3350 17 GM Packet PO SCH (09:34)
[2018-07-05] MEDS: Pregabalin 75 MG CAP PO SCH (09:34)
[2018-07-05] MEDS: Propranolol 10 MG TAB PO SCH ×2 (09:34→16:30)
[2018-07-05] MEDS: Senokot S 8.6-50 MG TAB PO SCH (09:35)
--- NOTE | 2018-07-05 13:59 | CON ---
DATE OF CONSULTATION: SUBJECTIVE: Mr. Cheng is doing well. He was transferred from the ICU over the weekend to telemetry monitoring. He states he is ambulating. He has been using incentive spirometry. No current complaints. OBJECTIVE: VITAL SIGNS: Blood pressure 104/57, pulse 60, temperature 98.1. LUNGS: Clear to auscultation. HEART: Regular rate and rhythm. ABDOMEN: Soft, nontender, nondistended. EXTREMITIES: No edema. PERTINENT LABORATORY DATA: Hemoglobin 10, creatinine 0.83. IMPRESSION: 1. Severe coronary artery disease. 2. Status post bypass surgery. 3. Tobacco abuse. 4. Peripheral vascular disease. RECOMMENDATIONS: From a CV standpoint, Mr. Cheng is doing well. He is continuing to undergo Physical therapy and incentive spirometry. He is currently on aspirin in addition to atorvastatin. Beta vu therapy has been held due to marginal blood pressure. We will likely recess in a.m. and place on low-dose beta-vu therapy if needed. Counseled on cessation of all tobacco products. Job ID: [id number]
--- NOTE | 2018-07-05 15:33 | PRG ---
DATE OF SERVICE: 07/05/2018 SUBJECTIVE: Faizan Cheng urinary retention. He is not having any shortness of breath. OBJECTIVE: VITAL SIGNS: Blood pressure 110/57, heart rate 78, respiratory rate 18, oximetry is 94 on room air. LUNGS: Clear. IMPRESSION: 1. Status post coronary artery bypass grafting. 2. ? chronic obstructive pulmonary disease. 3. Urinary retention. We will stop his anticholinergic nebulizer treatments. He had some immediate postop chest congestion improved with neb treatments, but we maybe able to get without these and that this small change may make a difference in his ability to void within 24 hours usually. We will continue to follow. Job ID: [id number]
[2018-07-05 16:35] VITALS: BP 103/55; TEMP 98.2
--- NOTE | 2018-07-06 09:52 | DIS ---
DATE OF ADMISSION: 06/25/2018 DATE OF DISCHARGE: 07/05/2018 DISCHARGE DISPOSITION: Inpatient rehabilitation. ALLERGIES: CODEINE AND BENADRYL. THE PATIENT WAS SEEN AND EXAMINED ON THE DAY OF DISCHARGE. DENIES ANY NEW COMPLAINTS. NO CHEST PAIN, SHORTNESS OF BREATH, OR PALPITATIONS. DISCHARGE MEDICATIONS: 1. Aspirin 325 mg daily. 2. Lipitor 40 mg at bedtime. 3. Protonix 40 mg daily. 4. MiraLAX daily. 5. Lyrica 75 b.i.d. 6. Inderal 10 mg three times a day. 7. Senokot-S 1 tablet b.i.d. 8. Flomax 0.4 at bedtime. 9. Melatonin at bedtime. 10. Clonazepam as needed. INPATIENT AUTO FLEET MANAGER: Cardiology, Dr. Urias; cardio surgery, Dr. Crooks; and Critical Care, Dr. Iraheta. INPATIENT PROCEDURES: On 28 June 2018, the patient underwent coronary artery bypass grafting x4. BRIEF HOSPITAL COURSE: The patient is a 78-year-old male with hypertension and tobacco dependence, presented to the hospital with chest discomfort. His workup was consistent with [id number] MN. His maximum troponin was 0.336. He underwent cardiac catheterization by Dr. Urias, that showed severe left main disease with 60% stenosis in the first diagonal branch, 60% stenosis in the first obtuse marginal, and 70% stenosis in the right PDA. His echocardiogram showed left ventricular ejection fraction 55% to 60% with diastolic dysfunction, mild mitral regurgitation, and mild tricuspid regurgitation. He underwent coronary artery bypass grafting by Dr. Crooks as discussed above. He was monitored in the intensive care unit postoperatively. He had issues with urinary retention, requiring placement of Collier catheter again. Collier catheter has been discontinued. He will benefit from postvoid residual measurement. He appears stable for discharge and has been cleared by Dr. Crooks. FINAL DIAGNOSES: 1. [id number] myocardial infarction, status post coronary artery bypass grafting. 2. Hypertension. 3. Urinary retention, requiring Collier catheter. Please note that Collier catheter has been discontinued. 4. Peripheral vascular disease. 5. Tobacco dependence. TIME SPENT: Total time coordinating the discharge of this patient was 36 minutes. Job ID: [id number]
== END 2018-07-05 20:11 | DRG 234 ==
LOC: ERS 23:35 → CCL 06-25 12:40 → CCU 06-25 15:18 → 2NO 07-01 20:43
PROVIDERS: ADMIT Hospitalist; ATTEND Hospitalist
PROC: 4A023N7 Measurement of Cardiac Sampling and Pressure, Left Heart, Percutaneous Approach (ICD-10-PCS; principal; 2018-06-25)
PROC: B2111ZZ Fluoroscopy of Multiple Coronary Arteries using Low Osmolar Contrast (ICD-10-PCS; 2018-06-25)
PROC: B2151ZZ Fluoroscopy of Left Heart using Low Osmolar Contrast (ICD-10-PCS; 2018-06-25)
PROC: 02100Z9 Bypass Coronary Artery, One Artery from Left Internal Mammary, Open Approach (ICD-10-PCS; 2018-06-28)
PROC: 021209W Bypass Coronary Artery, Three Arteries from Aorta with Autologous Venous Tissue, Open Approach (ICD-10-PCS; 2018-06-28)
PROC: 06BQ4ZZ Excision of Left Saphenous Vein, Percutaneous Endoscopic Approach (ICD-10-PCS; 2018-06-28)
PROC: 5A1221Z Performance of Cardiac Output, Continuous (ICD-10-PCS; 2018-06-28)
DX: I21.4 Non-ST elevation (NSTEMI) myocardial infarction (principal); D62 Acute posthemorrhagic anemia; I25.10 Atherosclerotic heart disease of native coronary artery without angina pectoris; I10 Essential (primary) hypertension; J44.9 Chronic obstructive pulmonary disease, unspecified; I73.9 Peripheral vascular disease, unspecified; F17.210 Nicotine dependence, cigarettes, uncomplicated; F41.8 Other specified anxiety disorders; R33.9 Retention of urine, unspecified; I95.9 Hypotension, unspecified; K59.00 Constipation, unspecified; Z90.49 Acquired absence of other specified parts of digestive tract; Z82.49 Family history of ischemic heart disease and other diseases of the circulatory system
CPT/HCPCS: 36415; 36416; 36430; 71045; 76942; 80048; 82805; 83735; 84484; 85014; 85018; 85025; 85049; 85610; 85730; 86850; 86900; 86901; 93005; 93010; 93306; 93454; 93798; 94002; 94150; 94640; 94760; 96360; 96361; 96372; C1769; J0670; J0690; J1100; J1265; J1644; J1650; J1815; J1825; J1885; J1940; J2001; J2150; J2250; J2440; J2704; J2720; J3010; J3370; J3475; J3480; J7050; J7620; P9045; P9047; Q9967; S0017; S0028